=== PATIENT | female | born 1955 | race Caucasian/White ===

== ENCOUNTER 2016-10-13 05:52 | Inpatient (IN) | payer MEDICAID, OTHER ==
[2016-10-13] MEDS ORDERED: NITROGLYCERIN SL TABS 0.4 MG TAB SUBLINGUAL STA ×3 (06:01)
[2016-10-13] MEDS ORDERED: ASPIRIN 81 MG CHEW PO STA (06:01)
--- NOTE | 2016-10-13 06:11 | ED ---
General Adult HPI - General Source: patient, RN notes reviewed Mode of arrival: wheelchair Limitations: no limitations <Reinier Araujo - Last Filed: 10/13/16 06:04> <Andrade Torres - Last Filed: 10/13/16 08:35> - General Chief complaint: Chest Pain Stated complaint: Chest Pain Time Seen by Provider: 10/13/16 05:57 - History of Present Illness Initial comments: Patient is a pleasant 89-year-old female presenting to the emergency department complaining of chest discomfort. Onset of symptoms was closed a week ago. Symptoms have been somewhat intermittent. Discomfort is more sharp. Patient has been coughing for over a week. Patient has occasional yellow sputum. Cough does make symptoms worse. Patient feels slightly short of breath. Patient did vomit one time. No diaphoresis. Patient has had similar symptoms previously without cardiac evaluation. (Reinier Araujo) - Related Data Allergies Allergy/AdvReac Type Severity Reaction Status Date / Time levofloxacin [From Levaquin] Allergy Anaphylaxis Verified 10/13/16 06:03 codeine AdvReac Nausea & Verified 10/13/16 06:03 Vomiting erythromycin base AdvReac Nausea & Verified 10/13/16 06:03 Vomiting Review of Systems ROS Other: All systems not noted in ROS Statement are negative. Constitutional: Denies: fever Eyes: Denies: eye pain ENT: Denies: ear pain Respiratory: Reports: cough Cardiovascular: Reports: chest pain Endocrine: Reports: fatigue Gastrointestinal: Reports: vomiting. Denies: abdominal pain Genitourinary: Denies: dysuria Musculoskeletal: Denies: back pain Skin: Denies: rash <Reinier Araujo - Last Filed: 10/13/16 06:04> ROS Other: All systems not noted in ROS Statement are negative. <Andrade Torres - Last Filed: 10/13/16 08:35> ROS Statement: Those systems with pertinent positive or pertinent negative responses have been documented in the HPI. Past Medical History Past Medical History: Hypertension History of Any Multi-Drug Resistant Organisms: None Reported Past Surgical History: Cholecystectomy, Orthopedic Surgery, Tubal Ligation Additional Past Surgical History / Comment(s): right breast lumpectomy Past Psychological History: No Psychological Hx Reported Smoking Status: Never smoker Past Alcohol Use History: None Reported Past Drug Use History: None Reported <Reinier Araujo - Last Filed: 10/13/16 06:04> General Exam Limitations: no limitations General appearance: alert, in no apparent distress Head exam: Present: atraumatic Eye exam: Present: normal appearance Neck exam: Present: normal inspection Respiratory exam: Present: normal lung sounds bilaterally Cardiovascular Exam: Present: regular rate, normal rhythm Expanded Peripheral pulses: 2+: Radial (R), Radial (L), Dorsalis Pedis (R), Dorsalis Pedis (L) GI/Abdominal exam: Present: soft. Absent: tenderness Extremities exam: Present: normal inspection. Absent: pedal edema, calf tenderness Neurological exam: Present: alert Psychiatric exam: Present: normal affect, normal mood Skin exam: Absent: rash <Reinier Araujo - Last Filed: 10/13/16 06:04> EKG Findings - EKG Comments: EKG Findings:: Normal sinus rhythm 68. Normal intervals. Normal axis. Normal QRS. Normal ST-T. <Reinier Araujo - Last Filed: 10/13/16 06:04> Medical Decision Making <Reinier Araujo - Last Filed: 10/13/16 06:04> - Lab Data Result diagrams: 10/13/16 06:03 10/13/16 06:03 <Andrade Torres - Last Filed: 10/13/16 08:35> - Medical Decision Making I received this patient has a sign out. She has remained symptom-free here in the emergency department. I did discuss the case with her physician Dr. Cummings , and the patient will be admitted to have serial cardiac enzymes and telemetry monitoring. He also requested cardiology consultation. (Andrade Torres) - Lab Data Lab Results 10/13/16 10/13/16 10/13/16 Range/Units 06:03 06:03 06:03 WBC 8.3 (3.8-10.6) k/uL RBC 4.54 (3.80-5.40) m/uL Hgb 14.3 (11.4-16.0) gm/dL Hct 43.5 (34.0-46.0) % MCV 95.8 (80.0-100.0) fL MCH 31.6 (25.0-35.0) pg MCHC 33.0 (31.0-37.0) g/dL RDW 13.0 (11.5-15.5) % Plt Count 307 (150-450) k/uL Neutrophils % 58 % Lymphocytes % 33 % Monocytes % 3 % Eosinophils % 3 % Basophils % 1 % Neutrophils # 4.8 (1.3-7.7) k/uL Lymphocytes # 2.7 (1.0-4.8) k/uL Monocytes # 0.3 (0-1.0) k/uL Eosinophils # 0.3 (0-0.7) k/uL Basophils # 0.1 (0-0.2) k/uL PT (9.0-12.0) sec INR (<1.1) APTT (22.0-30.0) sec D-Dimer (<0.60) mg/L FEU Sodium 144 (137-145) mmol/L Potassium 3.9 (3.5-5.1) mmol/L Chloride 105 (98-107) mmol/L Carbon Dioxide 29 (22-30) mmol/L Anion Gap 10 mmol/L BUN 18 H (7-17) mg/dL Creatinine 0.60 (0.52-1.04) mg/dL Est GFR (MDRD) Af Amer >60 (>60 ml/min/1.73 sqM) Est GFR (MDRD) Non-Af >60 (>60 ml/min/1.73 sqM) Glucose 103 H (74-99) mg/dL Calcium 9.8 (8.4-10.2) mg/dL Magnesium 2.2 (1.6-2.3) mg/dL Total Bilirubin 0.5 (0.2-1.3) mg/dL AST 18 (14-36) U/L ALT 40 (9-52) U/L Alkaline Phosphatase 68 (38-126) U/L Total Creatine Kinase 43 (30-135) U/L CK-MB (CK-2) 1.0 (0.0-2.4) ng/mL CK-MB (CK-2) Rel Index 2.3 Troponin I <0.012 (0.000-0.034) ng/mL Total Protein 6.7 (6.3-8.2) g/dL Albumin 4.1 (3.5-5.0) g/dL 10/13/16 Range/Units 06:03 WBC (3.8-10.6) k/uL RBC (3.80-5.40) m/uL Hgb (11.4-16.0) gm/dL Hct (34.0-46.0) % MCV (80.0-100.0) fL MCH (25.0-35.0) pg MCHC (31.0-37.0) g/dL RDW (11.5-15.5) % Plt Count (150-450) k/uL Neutrophils % % Lymphocytes % % Monocytes % % Eosinophils % % Basophils % % Neutrophils # (1.3-7.7) k/uL Lymphocytes # (1.0-4.8) k/uL Monocytes # (0-1.0) k/uL Eosinophils # (0-0.7) k/uL Basophils # (0-0.2) k/uL PT 10.2 (9.0-12.0) sec INR 1.0 (<1.1) APTT 23.9 (22.0-30.0) sec D-Dimer 0.18 (<0.60) mg/L FEU Sodium (137-145) mmol/L Potassium (3.5-5.1) mmol/L Chloride (98-107) mmol/L Carbon Dioxide (22-30) mmol/L Anion Gap mmol/L BUN (7-17) mg/dL Creatinine (0.52-1.04) mg/dL Est GFR (MDRD) Af Amer (>60 ml/min/1.73 sqM) Est GFR (MDRD) Non-Af (>60 ml/min/1.73 sqM) Glucose (74-99) mg/dL Calcium (8.4-10.2) mg/dL Magnesium (1.6-2.3) mg/dL Total Bilirubin (0.2-1.3) mg/dL AST (14-36) U/L ALT (9-52) U/L Alkaline Phosphatase (38-126) U/L Total Creatine Kinase (30-135) U/L CK-MB (CK-2) (0.0-2.4) ng/mL CK-MB (CK-2) Rel Index Troponin I (0.000-0.034) ng/mL Total Protein (6.3-8.2) g/dL Albumin (3.5-5.0) g/dL Disposition <Reinier Araujo - Last Filed: 10/13/16 06:04> <Andrade Torres - Last Filed: 10/13/16 08:35> Clinical Impression: Chest pain Disposition: ADMITTED IP TO THIS HOSP Condition: Good Instructions: Chest Pain (ED)
[2016-10-13 06:20] LABS: Basophils # (A) 0.1 k/uL (0-0.2); Basophils % (A) 1 %; CH 32.6; CHCM 34.2; Eosinophils # (A) 0.3 k/uL (0-0.7); Eosinophils % (A) 3 %; HCT 43.5 % (34.0-46.0); HDW 2.91; HGB 14.3 gm/dL (11.4-16.0); Luc # (Auto) 0.18; Luc % (Auto) 2; Lymphocytes # (A) 2.7 k/uL (1.0-4.8); Lymphocytes % (A) 33 %; MCH 31.6 pg (25.0-35.0); MCV 95.8 fL (80.0-100.0); Mean Platelet Volume 7.7; Monocytes # (A) 0.3 k/uL (0-1.0); Monocytes % (A) 3 %; Neutrophils # (A) 4.8 k/uL (1.3-7.7); Neutrophils % (A) 58 %; RBC 4.54 m/uL (3.80-5.40); WBC 8.3 k/uL (3.8-10.6); WBC (Perox) 8.47
[2016-10-13] MEDS ORDERED: ACETAMINOPHEN TAB 500 MG TAB PO STA (06:30)
[2016-10-13 06:32] LABS: ALT 40 U/L (9-52); AST 18 U/L (14-36); Alkaline Phosphatase 68 U/L (38-126); Anion Gap 10 mmol/L; Blood Urea Nitrogen 18 mg/dL (7-17); Calcium 9.8 mg/dL (8.4-10.2); Carbon Dioxide 29 mmol/L (22-30); Chloride 105 mmol/L (98-107); Glucose 103 mg/dL (74-99); Magnesium 2.2 mg/dL (1.6-2.3); Non-African American GFR(MDRD) >60 (>60 ml/min/1.73 sqM); Potassium 3.9 mmol/L (3.5-5.1); Sodium 144 mmol/L (137-145); Total Bilirubin 0.5 mg/dL (0.2-1.3); Total Protein 6.7 g/dL (6.3-8.2)
[2016-10-13 06:33] LABS: Partial Thromboplastin Time 23.9 sec (22.0-30.0); Prothrombin Time 10.2 sec (9.0-12.0)
--- NOTE | 2016-10-13 06:37 | XR ---
EXAMINATION TYPE: XR chest 2V DATE OF EXAM: 10/13/2016 6:29 AM COMPARISON: 12/14/2012 HISTORY: Chest pain TECHNIQUE: Frontal and lateral views of the chest are obtained. FINDINGS: Heart is enlarged. There is no heart failure. There are no hilar masses. Lungs are clear. There is no pleural effusion. Bony thorax is intact. IMPRESSION: Mild cardiomegaly is new compared to old exam. No heart failure or pulmonary infiltrate.
[2016-10-13 06:49] LABS: Creatine Kinase 43 U/L (30-135)
[2016-10-13 07:03] LABS: Troponin I <0.012 ng/mL (0.000-0.034)
[2016-10-13] MEDS ORDERED: NITROGLYCERIN OINT 1 INCH/GM PACKET TOPICAL STA (07:07)
[2016-10-13] MEDS ORDERED: NITROGLYCERIN SL TABS 0.4 MG TAB SUBLINGUAL PRN (08:35)
[2016-10-13 13:10] LABS: Creatine Kinase 31 U/L (30-135)
[2016-10-13] MEDS ORDERED: ACETAMINOPHEN TAB 325 MG TAB PO PRN (13:11)
[2016-10-13 13:23] LABS: Creatine Kinase MB 0.7 ng/mL (0.0-2.4); Troponin I <0.012 ng/mL (0.000-0.034)
--- NOTE | 2016-10-13 14:01 | P.CRDCN ---
History of Present Illness Consult date: 10/13/16 Chief complaint: Chest pain History of present illness: This is a pleasant 61-year-old female patient with a past medical history significant for hypertension presented to the emergency room complaining of chest discomfort. She was in her usual state of health until earlier today when she woke up from sleep was going to get her breakfast and started experiencing chest discomfort as sharp kind of discomfort without any radiation to the arm or neck or shoulders and without any associated symptoms. It lasted about 10 minutes then it was resolved. Subsequently she had another episode of less in duration and intensity. The cardiac workup of enzymes and EKG came in to be unremarkable. The patient only risk factor for CAD is hypertension. She does not smoke or drink alcohol. She has no family history of coronary artery disease. I recommended proceeding with a stress test to rule out any severe underlying CAD Past Medical History Past Medical History: GERD/Reflux, Hypertension History of Any Multi-Drug Resistant Organisms: None Reported Past Surgical History: Cholecystectomy, Orthopedic Surgery, Tubal Ligation Additional Past Surgical History / Comment(s): right breast lumpectomy (benign) , R fibula fx with surgery-plate/screws. Past Anesthesia/Blood Transfusion Reactions: Postoperative Nausea & Vomiting ( PONV) Past Psychological History: No Psychological Hx Reported Additional Psychological History / Comment(s): Pt resides with her spouse and adult daughter. She is independent. Smoking Status: Never smoker Past Alcohol Use History: None Reported Past Drug Use History: None Reported - Past Family History Father Family Medical History: Diabetes Mellitus Additional Family Medical History / Comment(s): Father from fall at work which caused cervical fracture. Mother Family Medical History: Dementia, Hypertension Additional Family Medical History / Comment(s): Alzheimer's, macular degeneration-blindness. She at the age of 86yrs. Medications and Allergies Home Medications Medication Instructions Recorded Confirmed Type Doxycycline [Vibramycin] 100 mg PO Q12HR 10/13/16 10/13/16 History Losartan [Cozaar] 50 mg PO DAILY 10/13/16 10/13/16 History Pantoprazole Sodium 40 mg PO DAILY 10/13/16 10/13/16 History Allergies Allergy/AdvReac Type Severity Reaction Status Date / Time levofloxacin [From Levaquin] Allergy Anaphylaxis Verified 10/13/16 06:03 codeine AdvReac Nausea & Verified 10/13/16 06:03 Vomiting erythromycin base AdvReac Nausea & Verified 10/13/16 06:03 Vomiting Physical Exam Vitals: Vital Signs Temp Pulse Pulse Resp BP BP Pulse Ox 10/13/16 12:00 97.9 F 69 18 136/83 96 10/13/16 11:48 97.3 F L 66 18 153/79 99 10/13/16 10:10 66 16 135/65 98 10/13/16 09:40 70 16 143/81 98 10/13/16 09:10 60 16 154/83 98 10/13/16 08:40 64 18 145/81 97 Intake and Output 10/12/16 10/13/16 10/13/16 22:59 06:59 14:59 Other: Voiding Method Toilet Weight 96.7 kg Patient Weight 10/14/16 06:59 Weight 96.7 kg - Constitutional General appearance: no acute distress - Respiratory Respiratory: bilateral: CTA - Cardiovascular Rhythm: regular Heart sounds: normal: S1, S2 Results 10/13/16 06:03 10/13/16 06:03 Cardiac Enzymes 10/13/16 Range/Units 12:09 CK-MB (CK-2) 0.7 (0.0-2.4) ng/mL Troponin I <0.012 (0.000-0.034) ng/mL Current Medications Generic Name Dose Route Start Last Admin Trade Name Freq PRN Reason Stop Dose Admin Acetaminophen 650 mg 10/13/16 13:11 10/13/16 13:40 Tylenol Tab PO 650 mg Q6HR PRN Administration Fever and/ or Pain Aspirin 325 mg 10/14/16 09:00 Aspirin PO DAILY [facility] Doxycycline Monohydrate 100 mg 10/13/16 13:15 Vibramycin PO Q12HR [facility] Sodium Chloride 1,000 mls @ 100 mls/hr 10/13/16 08:45 Saline 0.9% IV .Q10H [facility] Losartan Potassium 50 mg 10/13/16 13:15 Cozaar PO DAILY [facility] Nitroglycerin 0.4 mg 10/13/16 08:35 Nitrostat SUBLINGUAL Q5M PRN Chest Pain Pantoprazole Sodium 40 mg 10/13/16 13:15 Protonix PO AC-BRKFST TIERA Intake and Output 10/12/16 10/13/16 10/13/16 22:59 06:59 14:59 Other: Voiding Method Toilet Weight 96.7 kg Patient Weight 10/14/16 06:59 Weight 96.7 kg Assessment and Plan Plan: Assessment #1 atypical chest discomfort #2 systemic hypertension Plan Proceeding with a stress test tomorrow
[2016-10-13] MEDS: PANTOPRAZOLE 40 MG TABLET PO SCH (14:35)
[2016-10-13] MEDS: DOXYCYCLINE 50 MG CAP PO SCH ×2 (14:35→20:18)
[2016-10-13] MEDS: LOSARTAN 50 MG TAB PO SCH (14:35)
[2016-10-13 19:03] LABS: Creatine Kinase 31 U/L (30-135)
[2016-10-13 19:17] LABS: Creatine Kinase MB 0.8 ng/mL (0.0-2.4); Troponin I <0.012 ng/mL (0.000-0.034)
[2016-10-13] MEDS: SODIUM CHLORIDE 0.9% 1,000 ML IV SCH ×2 (19:28→19:29)
[2016-10-14 01:44] LABS: Cholesterol 195 mg/dL (<200); HDL Cholesterol 44 mg/dL (40-60); Triglycerides 129 mg/dL (<150)
[2016-10-14] MEDS: SODIUM CHLORIDE 0.9% 1,000 ML IV SCH ×2 (06:19→22:17)
--- NOTE | 2016-10-14 08:40 | P.HPIM ---
History of Present Illness H&P Date: 10/14/16 Chief Complaint: chest pain This is a history of physical 61-year-old white female who has been having chest pressure for the last several days. 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 She describes chest pressure and was becoming more frequent some radiation to the shoulder is noted. No nausea or diaphoresis however stated. Activity was not necessary provocative but she was becoming more concerned. Because of her symptoms and her comorbidities including her obesity, she was appropriately admitted. Commodity Analyst consulted and she is going to have nuclear medicine stress test later today. Review of Systems Constitutional: Denies chills, Denies fever Eyes: denies blurred vision, denies pain Cardiovascular: Reports chest pain Respiratory: Denies cough Gastrointestinal: Denies abdominal pain, Denies diarrhea, Denies nausea, Denies vomiting Genitourinary: Denies dysuria, Denies hematuria Musculoskeletal: Denies myalgias Integumentary: Denies pruritus, Denies rash Neurological: Denies numbness, Denies weakness Psychiatric: Denies anxiety, Denies depression Past Medical History Past Medical History: GERD/Reflux, Hypertension History of Any Multi-Drug Resistant Organisms: None Reported Past Surgical History: Cholecystectomy, Orthopedic Surgery, Tubal Ligation Additional Past Surgical History / Comment(s): right breast lumpectomy (benign) , R fibula fx with surgery-plate/screws. Past Anesthesia/Blood Transfusion Reactions: Postoperative Nausea & Vomiting ( PONV) Past Psychological History: No Psychological Hx Reported Additional Psychological History / Comment(s): Pt resides with her spouse and adult daughter. She is independent. Smoking Status: Never smoker Past Alcohol Use History: None Reported Past Drug Use History: None Reported - Past Family History Father Family Medical History: Diabetes Mellitus Additional Family Medical History / Comment(s): Father from fall at work which caused cervical fracture. Mother Family Medical History: Dementia, Hypertension Additional Family Medical History / Comment(s): Alzheimer's, macular degeneration-blindness. She at the age of 86yrs. Medications and Allergies Home Medications Medication Instructions Recorded Confirmed Type Doxycycline [Vibramycin] 100 mg PO Q12HR 10/13/16 10/13/16 History Losartan [Cozaar] 50 mg PO DAILY 01/12/17 01/12/17 History Pantoprazole Sodium 40 mg PO DAILY 10/13/16 10/13/16 History Allergies Allergy/AdvReac Type Severity Reaction Status Date / Time levofloxacin [From [facility]] Allergy Anaphylaxis Verified 10/13/16 06:03 codeine AdvReac Nausea & Verified 10/13/16 06:03 Vomiting erythromycin base AdvReac Nausea & Verified 10/13/16 06:03 Vomiting Physical Exam Vitals: Vital Signs Temp Pulse Pulse Pulse Resp BP BP 10/14/16 08:00 98.3 F 72 16 10/14/16 04:00 98.4 F 62 16 10/14/16 00:00 16 10/13/16 23:50 98.0 F 63 16 10/13/16 20:00 16 10/13/16 19:30 98.1 F 70 16 10/13/16 16:00 69 73 16 10/13/16 15:38 97.5 F L 73 16 10/13/16 12:00 97.9 F 69 18 136/83 10/13/16 11:48 97.3 F L 66 18 153/79 10/13/16 10:10 66 16 135/65 10/13/16 09:40 70 16 143/81 10/13/16 09:10 60 16 154/83 10/13/16 08:40 64 18 145/81 BP Pulse Ox 10/14/16 08:00 128/65 94 L 10/14/16 04:00 116/59 95 10/14/16 00:00 10/13/16 23:50 117/55 94 L 10/13/16 20:00 10/13/16 19:30 139/72 96 10/13/16 16:00 10/13/16 15:38 120/65 94 L 10/13/16 12:00 96 10/13/16 11:48 99 10/13/16 10:10 98 10/13/16 09:40 98 10/13/16 09:10 98 10/13/16 08:40 97 Intake and Output 10/13/16 10/14/16 10/14/16 22:59 06:59 14:59 Intake Total 222 Balance 222 Intake: Oral 222 Other: Voiding Method Toilet Toilet # Voids 1 1 - Constitutional General appearance: obese - EENT Eyes: EOMI - Neck Neck: no lymphadenopathy - Respiratory Respiratory: bilateral: CTA - Cardiovascular Rhythm: regular Heart sounds: normal: S1, S2 - Gastrointestinal General gastrointestinal: soft, no tenderness - Integumentary Integumentary: no cellulitis - Neurologic Neurologic: CNII-XII intact Results CBC & Chem 7: 10/13/16 06:03 10/13/16 06:03 Thrombosis Risk Factor Assmnt - Choose All That Apply Any of the Below Risk Factors Present?: Yes Each Factor Represents 1 point: Age 41-60 years, Obesity (BMI >25) Other Risk Factors: No Other congenital or acquired thrombophilia - If yes, enter type in comment: No Thrombosis Risk Factor Assessment Total Risk Factor Score: 2 Thrombosis Risk Factor Assessment Level: Low Risk Assessment and Plan Plan: Myocardial infraction has been ruled out. Waiting appropriate stress testing. Hopefully discharge later today. Reconcile medications as necessary. She's a full code. Time with Patient: Less than 30
--- NOTE | 2016-10-14 09:14 | P.PN ---
Progress Note - Text This is a pleasant 61-year-old female patient with a past medical history significant for hypertension presented to the emergency room complaining of chest discomfort. She was in her usual state of health until earlier today when she woke up from sleep was going to get her breakfast and started experiencing chest discomfort as sharp kind of discomfort without any radiation to the arm or neck or shoulders and without any associated symptoms. It lasted about 10 minutes then it was resolved. Subsequently she had another episode of less in duration and intensity. The cardiac workup of enzymes and EKG came in to be unremarkable. The patient only risk factor for CAD is hypertension. She does not smoke or drink alcohol. She has no family history of coronary artery disease. I recommended proceeding with a stress test to rule out any severe underlying CAD
[2016-10-14] MEDS: DOXYCYCLINE 50 MG CAP PO SCH ×2 (11:55→20:32)
[2016-10-14] MEDS: ASPIRIN 325 MG TAB PO SCH (11:56)
[2016-10-14] MEDS: PANTOPRAZOLE 40 MG TABLET PO SCH (11:56)
[2016-10-14] MEDS: LOSARTAN 50 MG TAB PO SCH (11:56)
--- NOTE | 2016-10-14 12:22 | ECHOS ---
DATE OF SERVICE: 10/14/2016 AGE: 61Y SEX: F HT: 61 WT: 213 lbs. Protocol Ben: X Others: Stress Echo Stage: II Dur. of Exercise: 6 minutes *Heart Rate Blood Pressure *Rest: 77 Rest: 120/69 * *Max. Achieved: 143 Maximum BP: 164/86 85% PMHR: 137 100% PMHR: 161 *METS: 6.1 INDICATIONS: Chest pain. MEDICATIONS: Losartan. CLINICAL INFORMATION: Hypertension, chest pain, shortness of breath. Family history of coronary artery disease. Patient is a nonsmoker. Resting ECG shows sinus rhythm, rate of 77 beats per minute, [place] interval 0.16, QRS 0.08, normal ST-T waves. Utilizing a standard Ben protocol, a symptom-limited treadmill test was performed. Patient exercised for total of 6 minutes, attained a peak heart rate 143 beats per minute which is approximately 89% predicted maximum heart rate with mild chest pain without any ST segment deviations indicative of ischemia at peak exertion. No cardiac ( ). Baseline images show normal thickening and contractility. Postexercise images show improve contractility except for a questionable mild hypokinesis of the anteroapical segment appears to be slightly lagging compared to baseline and recovery. Clinical correlation is suggested. IMPRESSION: 1. Mild hypokinesis of the anteroapical segment compared to recovery and the baseline. Clinical correlation is suggested, possible underlying ischemic heart disease. 2. Patient reported to have mild chest pressure at peak exertion without any ST segment deviations indicative of ischemia.
[2016-10-14] MEDS ORDERED: ALPRAZolam 0.5 MG TAB PO PRN (15:45)
[2016-10-14] MEDS ORDERED: NITROGLYCERIN SL TABS 0.4 MG TAB SUBLINGUAL PRN (15:45)
[2016-10-14] MEDS ORDERED: ATORVASTATIN 80 MG TAB PO STA (15:45)
[2016-10-14] MEDS ORDERED: SODIUM CHLORIDE 0.9% 1,000 ML in EMPTY BAG 1 BAG IV ONE (15:45)
[2016-10-14] MEDS ORDERED: ALPRAZolam 0.25 MG TAB PO PRN (15:45)
[2016-10-14] MEDS ORDERED: ASPIRIN 325 MG TAB PO STA (15:45)
[2016-10-14 17:01] VITALS: RESP 18
[2016-10-14] MEDS ORDERED: MORPHINE SULFATE 2 MG/ML SYRINGE IVP PRN (22:00)
[2016-10-14] MEDS ORDERED: ONDANSETRON 4 MG/2 ML VIAL IVP PRN (22:01)
[2016-10-15] MEDS: SODIUM CHLORIDE 0.9% 1,000 ML IV SCH (05:32)
[2016-10-15] MEDS: DOXYCYCLINE 50 MG CAP PO SCH (06:34)
[2016-10-15] MEDS: PANTOPRAZOLE 40 MG TABLET PO SCH (06:34)
[2016-10-15] MEDS: LOSARTAN 50 MG TAB PO SCH (06:34)
[2016-10-15] MEDS: ASPIRIN 325 MG TAB PO SCH (06:35)
--- NOTE | 2016-10-15 09:02 | P.PN ---
Progress Note - Text This is a pleasant 61-year-old female patient with a past medical history significant for hypertension presented to the emergency room complaining of chest discomfort. She was in her usual state of health until earlier today when she woke up from sleep was going to get her breakfast and started experiencing chest discomfort as sharp kind of discomfort without any radiation to the arm or neck or shoulders and without any associated symptoms. It lasted about 10 minutes then it was resolved. Subsequently she had another episode of less in duration and intensity. The cardiac workup of enzymes and EKG came in to be unremarkable. The patient only risk factor for CAD is hypertension. She does not smoke or drink alcohol. She has no family history of coronary artery disease. The patient underwent a stress test which showed ischemia. I would consider proceeding with heart catheterization to rule out any severe underlying CAD.
[2016-10-15] MEDS ORDERED: LIDOCAINE 2% INJ 20 MG/ML (20 ML MDV) ONE (12:15)
[2016-10-15] MEDS ORDERED: SODIUM CHLORIDE 0.9% (PF) 10 ML VIAL ONE (12:15)
[2016-10-15] MEDS ORDERED: VERAPAMIL 2.5 MG/ML 2 ML AMP ONE (12:15)
[2016-10-15] MEDS ORDERED: IV FLUID CONTINUATION 175 ML IV ONE (12:20)
[2016-10-15] MEDS ORDERED: diphenhydrAMINE 50 MG/ML 1 ML VIAL ONE (12:29)
[2016-10-15] MEDS ORDERED: MIDAZOLAM 2 MG/2 ML VIAL ONE ×2 (12:29→12:50)
[2016-10-15] MEDS ORDERED: diphenhydrAMINE 50 MG/ML 1 ML VIAL IVP ONE (12:35)
[2016-10-15] MEDS: MIDAZOLAM 2 MG/2 ML VIAL IV ONE ×2 (12:37→12:43)
[2016-10-15] MEDS ORDERED: LIDOCAINE 2% INJ 20 MG/ML SQ ONE (12:44)
[2016-10-15 13:00] VITALS: TEMP 98.5
[2016-10-15] MEDS ORDERED: MIDAZOLAM 2 MG/2 ML VIAL IV ONE (13:00)
[2016-10-15] MEDS ORDERED: RX INFO: IV CONTRAST WAS GIVEN 1 EACH MISC MISCELLANE PRN (13:05)
[2016-10-15] MEDS ORDERED: IOHEXOL 350 MG/ML 100 ML BOTTLE INJ ONE (13:08)
[2016-10-15] MEDS ORDERED: SODIUM CHLORIDE 0.9% 1,000 ML IV ONE (13:08)
[2016-10-15] MEDS ORDERED: SODIUM CHLORIDE 0.9% 1,000 ML IV SCH (13:15)
[2016-10-15 17:09] VITALS: BP 107/53; PULSE 81
--- NOTE | 2016-10-15 17:54 | CC ---
DATE OF SERVICE: October 15, 2016 PERFORMING PHYSICIAN: John Lainez M.D., metabolic specialist. PROCEDURE PERFORMED: 1. Selective right and left coronary angiogram. 2. Left heart catheterization. 3. Left ventriculography. INDICATION: This is a pleasant 61-year-old female patient with hypertension and dyslipidemia presented to the hospital with chest discomfort and underwent a stress test which came in to be abnormal with evidence of ischemia. Approach: Right common femoral artery. COMPLICATIONS: None. Level of sedation: Moderate. PROCEDURE DESCRIPTION: After obtaining informed consent, the patient was brought to the cardiac biological lab technician. The right common femoral artery was cannulated using micropuncture technique culture were passed easily. Then I placed a 6 Malaysian sheath in the right common femoral artery. Then I did selective right and left coronary angiogram using JR4 and JL4 catheters. After that, I did left heart catheterization and LV gram using a 6 Malaysian pigtail catheter. The procedure was completed without any complication. SELECTIVE CORONARY ANGIOGRAM: 1. The right coronary artery, the right coronary artery is a large-caliber vessel and it is a dominant vessel. It is angiographically normal. 2. The left main has plaque by the ostium/proximal portion, seems to be in the range of 20% to 30%. It bifurcates into the left circumflex and left anterior descending artery. 3. Left circumflex is a large-caliber vessel and it is a nondominant vessel. The proximal left circumflex appeared to be angiographically normal and gives rises into the first OM branch, which is tortuous, but normal. The mid left circumflex is normal and gives rises into multiple small obtuse marginal branches and the circ continues after that as a small-caliber vessel in the AV groove. 4. The LAD: The proximal LAD is angiographically normal. The mid LAD is normal and gives rises into the first diagonal branch, which seems to be angiographically normal. The LAD distally becomes small caliber vessel, but angiographically normal. HEMODYNAMICS: The left ventricular end-diastolic pressure was 16 mmHg and no gradient was identified across the aortic valve. Left central vessel was performed in the [place] PAZ projection and using a power injection. The left ventricular systolic function is normal with EF about 50%. CONCLUSION: 1. Mild coronary artery disease involving the ostial left main coronary artery. 2. Preserved left ventricular systolic function. POSTPROCEDURE MANAGEMENT: 1. Maximize medical treatment and add statin to the current medical treatment. 2. Continue aspirin as well. 3. Follow up with the patient.
--- NOTE | 2016-10-15 18:00 | LTR ---
October 15, 2016 RE: Che Patel Dear Dr. Cummings: Mrs. Che Patel underwent a heart catheterization and that showed only mild nonobstructive coronary artery disease involving the ostial left main coronary artery. I add statin to the current medical treatment with aspirin and losartan. I want to thank you for allowing me to participate or in her care. Please do not hesitate to call if you have any questions or concerns. Sincerely, MARIAA ROD MD
--- NOTE | 2016-10-15 18:20 | DS ---
DATE OF ADMISSION: 10/15/2016 DATE OF DISCHARGE: A 61-year-old who came in with chest pain questionably positive stress test. Because of which patient underwent cardiac catheterization, which did not show significant coronary occlusion. Her chest pain is probably due to anxiety episode and depression. Patient is already on Protonix. Patient is complaining of sinus headache like symptoms. Doxycycline does not appear to be effective, because of which I am starting her on Z-Gomez. Patient was seen and examined on the day of discharge. Vitals are stable. PHYSICAL EXAMINATION: GENERAL: The patient is alert and oriented x3, not in any acute distress. Well developed, well nourished. HEENT: Pupils are round and equally reacting to light. EOMI. No scleral icterus. No conjunctival pallor. Normocephalic, atraumatic. No pharyngeal erythema. No thyromegaly. CARDIOVASCULAR: S1 and S2 present. No murmurs, rubs, or gallops. PULMONARY: Chest is clear to auscultation, no wheezing or crackles. ABDOMEN: Soft, nontender, nondistended, normoactive bowel sounds. No palpable organomegaly. MUSCULOSKELETAL: No joint swelling or deformity. EXTREMITIES: No cyanosis, clubbing, or pedal edema. NEUROLOGICAL: Gross neurological examination did not reveal any focal deficits. SKIN: No rashes. FINAL DIAGNOSES: 1. Chest pain rule out acute coronary artery syndrome. Patient underwent cardiac catheterization which did not show any significant occlusion of the coronary vasculature. 2. Possible bronchitis. 3. Chest pain, probably related to episodes of anxiety. Patient will follow with Dr. Cummings as an outpatient. DISCHARGE DIET: Cardiac. Patient does have a history of high blood pressure. Follow with Dr. Jonh Cummings in 3 to 7 days. Activity as tolerated. DISCHARGE MEDICATIONS: 1. Z-Gomez. 2. Losartan. 3. Protonix.
[2016-10-15] MEDS ORDERED: ATORVASTATIN 80 MG TAB PO SCH (21:00)
== END 2016-10-15 19:15 | disposition home or self-care (01) | DRG 287 ==
LOC: EC 05:52 → OBSVTOIN 08:36 → 3OBS 08:36 → INTOOBSV 10-15 09:18 → OBSVTOIN 10-15 09:18 → UNDODISIN 10-15 19:15
PROVIDERS: ADMIT Family Medicine; ATTEND Family Medicine
PROC: B2111ZZ Fluoroscopy of Multiple Coronary Arteries using Low Osmolar Contrast (ICD-10-PCS; 2016-10-15)
PROC: B2151ZZ Fluoroscopy of Left Heart using Low Osmolar Contrast (ICD-10-PCS; 2016-10-15)
PROC: 4A023N7 Measurement of Cardiac Sampling and Pressure, Left Heart, Percutaneous Approach (ICD-10-PCS; principal; 2016-10-15 07:30)
DX: R07.9 Chest pain, unspecified (principal); Z68.41 Body mass index [BMI] 40.0-44.9, adult; I10 Essential (primary) hypertension; E66.9 Obesity, unspecified; F32.9 Major depressive disorder, single episode, unspecified; E78.5 Hyperlipidemia, unspecified; F41.9 Anxiety disorder, unspecified; I25.10 Atherosclerotic heart disease of native coronary artery without angina pectoris; K21.9 Gastro-esophageal reflux disease without esophagitis; J40 Bronchitis, not specified as acute or chronic; Z79.899 Other long term (current) drug therapy; Z88.1 Allergy status to other antibiotic agents; Z88.5 Allergy status to narcotic agent; Z82.49 Family history of ischemic heart disease and other diseases of the circulatory system
CPT/HCPCS: 36415; 71020; 80053; 80061; 82550; 82553; 83735; 84484; 85025; 85379; 85610; 85730; 93005; 93017; 93350; 93458; 99285

== ENCOUNTER → 2016-11-16 | Outpatient (CLI) | payer MEDICAID ==
--- NOTE | 2016-11-16 09:44 | ECHOF ---
Referral Reason:HTN MEASUREMENTS -------- HEIGHT: 127.0 cm WEIGHT: 96.2 kg BP: IVSd: 1.2 cm (0.6 - 1.1) LVIDd: 4.3 cm (3.9 - 5.3) LVPWd: 1.1 cm (0.6 - 1.1) IVSs: 1.7 cm LVIDs: 3.6 cm LVPWs: 1.4 cm LA Diam: 3.5 cm (2.7 - 3.8) LAESV Index (A-L): 27.33 ml/m Ao Diam: 3.6 cm (2.0 - 3.7) AV Cusp: 1.6 cm (1.5 - 2.6) LA Diam: 3.4 cm (2.7 - 3.8) MV EXCURSION: 20.174 mm (> 18.000) MV EF SLOPE: 80 mm/s (70 - 150) EPSS: 0.8 cm MV E Jesus: 0.71 m/s MV DecT: 224 ms MV A Jesus: 0.91 m/s MV E/A Ratio: 0.78 RAP: 5.00 mmHg RVSP: 26.20 mmHg FINDINGS -------- Sinus rhythm. This was a technically good study. There is mild concentric left ventricular hypertrophy. Overall left ventricular systolic function is normal with, an EF between 55 - 60 %. Possible Inferior Basal Hypokinesis. The right ventricle is normal in size. Normal LA size by volume 22+/-6 ml/m2. The right atrial size is normal. There is mild aortic valve sclerosis. There is no evidence of aortic regurgitation. Mild mitral annular calcification present. Mild mitral regurgitation is present. Mild tricuspid regurgitation present. There is no evidence of pulmonary hypertension. The right ventricular systolic pressure, as measured by Doppler, is 26.20mmHg. Trace/mild (physiologic) pulmonic regurgitation. The aortic root size is normal. There is no pericardial effusion. CONCLUSIONS -------- 1. There is mild concentric left ventricular hypertrophy. 2. The right ventricular systolic pressure, as measured by Doppler, is 26.20mmHg. 3. Trace/mild (physiologic) pulmonic regurgitation. 4. There is no pericardial effusion. 5. Overall left ventricular systolic function is normal with, an EF between 55 - 60 %. 6. Possible Inferior Basal Hypokinesis. 7. Normal LA size by volume 22+/-6 ml/m2. 8. There is mild aortic valve sclerosis. 9. Mild mitral annular calcification present. 10. Mild mitral regurgitation is present. 11. Mild tricuspid regurgitation present. 12. There is no evidence of pulmonary hypertension. [employer]ERIAL HANDLER: Dahiana Goldberg RDCS
== END | disposition home or self-care (01) ==
LOC: RADECHMAIN 08:17
PROVIDERS: ATTEND Internal Medicine Interventional Cardiology
DX: I34.0 Nonrheumatic mitral (valve) insufficiency (principal); I07.1 Rheumatic tricuspid insufficiency; I35.8 Other nonrheumatic aortic valve disorders; I25.10 Atherosclerotic heart disease of native coronary artery without angina pectoris; I10 Essential (primary) hypertension
CPT/HCPCS: 93306

== ENCOUNTER → 2017-06-29 | Outpatient (CLI) | payer MEDICAID ==
--- NOTE | 2017-06-30 07:57 | XR ---
EXAMINATION TYPE: XR pelvis AP view DATE OF EXAM: 06/29/2017 CLINICAL HISTORY: Fall and hip pain TECHNIQUE: A single AP view of the pelvis is obtained. COMPARISON: Left hip radiographs dated 06/21/2017 FINDINGS: There is no acute fracture/dislocation evident in the pelvis. The hip and sacroiliac join ts appear symmetric and unremarkable. The overlying soft tissue appears unremarkable. Tubal ligation clips are noted. Minimal degenerative changes of femoral acetabular joints are demonstrated as aceta bular sclerosis. IMPRESSION: There is no acute fracture or dislocation in the pelvis. Mild degenerative changes of th e bilateral femoral acetabular joints.
== END | disposition home or self-care (01) ==
LOC: RADXRMAIN 16:02
PROVIDERS: ATTEND Family Medicine
DX: R10.2 Pelvic and perineal pain (principal); M25.552 Pain in left hip
CPT/HCPCS: 72170

== ENCOUNTER → 2017-06-29 | Outpatient (CLI) | payer MEDICAID ==
--- NOTE | 2017-06-29 13:27 | XR ---
EXAMINATION TYPE: XR Hip Complete LT DATE OF EXAM: 06/29/2017 CLINICAL HISTORY: Fall and hip pain TECHNIQUE: AP and frogleg views of the left hip are obtained. COMPARISON: None. FINDINGS: There is no acute fracture/dislocation evident in the left hip. The joint space in the le ft hip appears within normal limits. The overlying soft tissue appears unremarkable. Metallic densit y at the inferior left sacroiliac joint may be external to the patient or within the true pelvis. IMPRESSION: There is no acute fracture or dislocation in the left hip.
== END | disposition home or self-care (01) ==
LOC: RADXRMAIN 10:43
PROVIDERS: ATTEND Family Medicine
DX: M25.552 Pain in left hip (principal)
CPT/HCPCS: 73502

== ENCOUNTER → 2017-07-13 | Outpatient (CLI) | payer MEDICAID ==
[2017-07-13 10:31] LABS: ALT 40 U/L (9-52); AST 15 U/L (14-36); Cholesterol 180 mg/dL (<200); HDL Cholesterol 62 mg/dL (40-60)
== END | disposition home or self-care (01) ==
LOC: LABWHC1 09:40
PROVIDERS: ATTEND Internal Medicine Interventional Cardiology
DX: E78.2 Mixed hyperlipidemia (principal)
CPT/HCPCS: 36415; 80061; 84450; 84460

== ENCOUNTER → 2017-07-17 | Outpatient (CLI) | payer MEDICAID ==
--- NOTE | 2017-07-17 12:54 | ECHOF ---
Referral Reason:I10 Hypertension I25.10 Cardiovascular Disease Uns MEASUREMENTS -------- HEIGHT: 154.9 cm WEIGHT: 102.1 kg BP: 142/76 IVSd: 1.4 cm (0.6 - 1.1) LVIDd: 3.7 cm (3.9 - 5.3) LVPWd: 1.4 cm (0.6 - 1.1) IVSs: 2.2 cm LVIDs: 2.2 cm LVPWs: 1.9 cm Ao Diam: 3.3 cm (2.0 - 3.7) AV Cusp: 1.7 cm (1.5 - 2.6) LA Diam: 3.0 cm (2.7 - 3.8) MV EXCURSION: 16.659 mm (> 18.000) MV EF SLOPE: 85 mm/s (70 - 150) EPSS: 0.7 cm MV E Jesus: 0.76 m/s MV DecT: 200 ms MV A Jesus: 0.90 m/s MV E/A Ratio: 0.84 RAP: 5.00 mmHg RVSP: 13.29 mmHg FINDINGS -------- Sinus rhythm. This was a technically good study. The left ventricular size is normal. There is moderate concentric left ventricular hypertrophy. Overall left ventricular systolic function is low-normal with, an EF between 50 - 55 %. Basal inferior LV wall motion is hypokinetic. The right ventricle is normal in size and function. The left atrium is normal in size. The right atrium is normal in size. The aortic valve is trileaflet, and appears structurally normal. No aortic stenosis or regurgitation. Mild mitral regurgitation is present. Mild tricuspid regurgitation present. The right ventricular systolic pressure, as measured by Doppler, is 13.29mmHg. Pulmonic valve appears structurally normal. The aortic root size is normal. Normal inferior vena cava with normal inspiratory collapse consistent with estimated right atrial pressure of 5 mmHg. The pericardium is normal. CONCLUSIONS -------- 1. Sinus rhythm. 2. The aortic valve is trileaflet, and appears structurally normal. No aortic stenosis or regurgitation. 3. Mild mitral regurgitation is present. 4. Mild tricuspid regurgitation present. 5. The right ventricular systolic pressure, as measured by Doppler, is 13.29mmHg. 6. Pulmonic valve appears structurally normal. 7. The aortic root size is normal. 8. Normal inferior vena cava with normal inspiratory collapse consistent with estimated right atrial pressure of 5 mmHg. 9. The pericardium is normal. 10. This was a technically good study. 11. The left ventricular size is normal. 12. There is moderate concentric left ventricular hypertrophy. 13. Overall left ventricular systolic function is low-normal with, an EF between 50 - 55 %. 14. Basal inferior LV wall motion is hypokinetic. 15. The right ventricle is normal in size and function. 16. The left atrium is normal in size. 17. The right atrium is normal in size. MACHINE TECH: Gladys Castillo RDCS
== END ==
LOC: RADECHMAIN 11:15
PROVIDERS: ATTEND Internal Medicine Interventional Cardiology
DX: I08.1 Rheumatic disorders of both mitral and tricuspid valves (principal); I25.10 Atherosclerotic heart disease of native coronary artery without angina pectoris; I10 Essential (primary) hypertension
CPT/HCPCS: 93306

== ENCOUNTER → 2018-02-22 | Outpatient (CLI) | payer MEDICAID ==
[2018-02-22 08:45] LABS: ALT 39 U/L (9-52); AST 17 U/L (14-36); Cholesterol 170 mg/dL (<200); HDL Cholesterol 59 mg/dL (40-60); LDL Cholesterol,Calculated 91 mg/dL (0-99); Triglycerides 98 mg/dL (<150)
== END | disposition home or self-care (01) ==
LOC: LABWHC1 08:00
PROVIDERS: ATTEND Internal Medicine Interventional Cardiology
DX: E78.2 Mixed hyperlipidemia (principal)
CPT/HCPCS: 36415; 80061; 84450; 84460

== ENCOUNTER → 2018-08-09 | Outpatient (CLI) | payer MEDICAID ==
--- NOTE | 2018-08-13 10:21 | MM ---
Reason for exam: screening (asymptomatic). Last mammogram was performed 10 years and 5 months ago. History: Patient had first child at age 38. Benign stereotactic core biopsy of the left breast, July 18, 2002. Benign excisional biopsy of the right breast, August 30, 2001. Stereotactic core biopsy of the right breast, February 16, 2001. Core biopsy of the left breast. Core biopsy of the right breast. Physical Findings: A clinical breast exam by your physician is recommended on an annual basis and results should be correlated with mammographic findings. MG 3D Screening Mammo W/Cad Bilateral CC and MLO view(s) were taken. Prior study comparison: March 14, 2008, bilateral digital screening mammogram. February 16, 2006, bilateral screening mammogram w/CAD. There are scattered fibroglandular densities. Previous mammotome biopsy in the left breast. There is chronic distortion right upper outer quadrant middle position. ASSESSMENT: Benign, BI-RAD 2 RECOMMENDATION: Routine screening mammogram of both breasts in 1 year.
== END | disposition home or self-care (01) ==
LOC: RADMAMWWP 16:38
PROVIDERS: ATTEND Family Medicine
DX: Z12.31 Encounter for screening mammogram for malignant neoplasm of breast (principal)
CPT/HCPCS: 77063; 77067

== ENCOUNTER → 2018-11-01 | Outpatient (CLI) | payer MEDICAID | END | disposition home or self-care (01) | LOC: LABWHC1 15:57 | PROVIDERS: ATTEND Orthopaedic Surgery | DX: M79.671 Pain in right foot (principal); M84.374D Stress fracture, right foot, subsequent encounter for fracture with routine healing | CPT/HCPCS: 36415; 82306 ==

== ENCOUNTER → 2019-01-11 | Outpatient (CLI) | payer MEDICAID ==
[2019-01-11 11:30] LABS: Albumin 4.2 g/dL (3.80-4.90); Albumin/Globulin Ratio 2.21 (1.60-3.17); Anion Gap 9.6 mmol/L (4.00-12.00); Calcium 9.2 mg/dL (8.7-10.3); Carbon Dioxide 24.4 mmol/L (21.6-31.8); Globulin 1.9 g/dL (1.6-3.3); Potassium 4.2 mmol/L (3.5-5.5); Total Bilirubin 0.4 mg/dL (0.2-1.2); Total Protein 6.1 g/dL (6.2-8.2)
== END ==
LOC: LABWHC1 07:05
PROVIDERS: ATTEND Family Medicine
DX: I87.2 Venous insufficiency (chronic) (peripheral) (principal); R60.0 Localized edema
CPT/HCPCS: 36415; 80053; 83880

== ENCOUNTER → 2019-11-11 | Outpatient (CLI) | payer MEDICAID ==
[2019-11-11 11:38] LABS: Chol/HDL Ratio 3.14; LDL Cholesterol,Calculated 92.8 mg/dL (0.0-131.0); VLDL Calculation 16.2 mg/dL (5.00-40.00)
== END | disposition home or self-care (01) ==
LOC: LABWHC1 06:32
PROVIDERS: ATTEND Internal Medicine Interventional Cardiology
DX: E78.2 Mixed hyperlipidemia (principal)
CPT/HCPCS: 36415; 80061; 84450; 84460

== ENCOUNTER 2020-03-06 12:59 | Observation (INO) | payer MEDICAID ==
--- NOTE | 2020-03-06 13:14 | ED ---
General Adult HPI - General Chief complaint: Chest Pain Stated complaint: SOB Time Seen by Provider: 03/06/20 13:08 Source: patient, RN notes reviewed Mode of arrival: ambulatory Limitations: no limitations - History of Present Illness Initial comments: 65-year-old female with a past medical history of GERD, hyperlipidemia, hypertension, cholecystectomy, tubal ligation presents to the emergency department for a chief complaint of chest pain. Patient states she has had mild chest pain on and off for the past few days. Patient states it is a squeezing pain in the left anterior side of her chest. Patient states this is exacerbated by exertion. 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 Patient's chest pain is now improved. Patient had a heart catheterization done about 3.[address] Purvis that showed the left main has plaque by the ostium/proximal portion in the range of 20-30%. Patient was put on medical management at that time. Patient states she was taking cholesterol medications but has not been "completely faithful."Patient has no other complaints at this time including abdominal pain, nausea or vomiting, headache, or visual changes. - Related Data Home Medications Medication Instructions Recorded Confirmed Losartan [Cozaar] 50 mg PO DAILY 10/13/16 03/25/19 Pantoprazole Sodium 40 mg PO DAILY 10/13/16 03/25/19 Calcium Carbonate/Vitamin D3 1 tab PO BID 03/25/19 03/25/19 [Calcium 600-Vit D3 200 Tablet] Fluticasone Nasal [place] [Flonase 1 spr EA NOSTRIL DAILY PRN 03/25/19 03/25/19 Nasal [place]] Glucosamine Sulfate 500 mg PO DAILY 03/25/19 03/25/19 Ibuprofen [Motrin] 800 mg PO TID PRN 03/25/19 03/25/19 Lovastatin [Mevacor] 10 mg PO QAM 03/25/19 03/25/19 Previous Rx's Medication Instructions Recorded Amoxicillin/Potassium Clav 1 tab PO Q12HR #20 tab 03/25/19 [Augmentin 875-125 Tablet] Allergies Allergy/AdvReac Type Severity Reaction Status Date / Time levofloxacin [From Levaquin] Allergy Anaphylaxis Verified 03/06/20 13:04 codeine AdvReac Nausea & Verified 03/06/20 13:04 Vomiting erythromycin base AdvReac Nausea & Verified 03/06/20 13:04 Vomiting Review of Systems ROS Statement: Those systems with pertinent positive or pertinent negative responses have been documented in the HPI. ROS Other: All systems not noted in ROS Statement are negative. Past Medical History Past Medical History: GERD/Reflux, Hyperlipidemia, Hypertension History of Any Multi-Drug Resistant Organisms: None Reported Past Surgical History: Cholecystectomy, Orthopedic Surgery, Tubal Ligation Additional Past Surgical History / Comment(s): right breast lumpectomy (benign), R fibula fx with surgery-plate/screws. Past Anesthesia/Blood Transfusion Reactions: Postoperative Nausea & Vomiting (PONV) Past Psychological History: No Psychological Hx Reported Smoking Status: Never smoker Past Alcohol Use History: None Reported Past Drug Use History: None Reported - Past Family History Father Family Medical History: Diabetes Mellitus Additional Family Medical History / Comment(s): Father from fall at work which caused cervical fracture. Mother Family Medical History: Dementia, Hypertension Additional Family Medical History / Comment(s): Alzheimer's, macular degeneration-blindness. She at the age of 86yrs. General Exam Limitations: no limitations General appearance: alert, in no apparent distress Head exam: Present: atraumatic, normocephalic, normal inspection Eye exam: Present: normal appearance, PERRL, EOMI. Absent: scleral icterus, conjunctival injection, periorbital swelling ENT exam: Present: normal exam, mucous membranes moist Neck exam: Present: normal inspection, full ROM. Absent: tenderness, meningismus, lymphadenopathy Respiratory exam: Present: normal lung sounds bilaterally. Absent: respiratory distress, wheezes, rales, rhonchi, stridor Cardiovascular Exam: Present: regular rate, normal rhythm, normal heart sounds. Absent: systolic murmur, diastolic murmur, rubs, gallop, clicks GI/Abdominal exam: Present: soft, normal bowel sounds. Absent: distended, tenderness, guarding, rebound, rigid Neurological exam: Present: alert Course Vital Signs 03/06/20 03/06/20 13:01 13:40 Temperature 98.1 F Pulse Rate 85 86 Respiratory 18 18 Rate Blood Pressure 170/100 133/74 O2 Sat by Pulse 98 96 Oximetry EKG Findings - EKG Comments: EKG Findings:: Normal sinus rhythm, ventricular rate 79, AZ interval 180, QTC 444 Medical Decision Making - Medical Decision Making Vitals are stable. CBC CMP unremarkable. Troponin negative.EKG shows a normal sinus rhythm, no evidence of ST elevation or depression. She was given an aspirin upon presentation. Laboratory evaluation was performed which was unremarkable. Troponin is negative. Chest x-ray shows no acute process. Patient had a heart catheterization performed 3.5 years ago that showed mild 20- 30% coronary artery disease involving the left main coronary artery with preserv ed left ventricular systolic function. Given typical features of exertional squeezing chest pain accompanied with shortness of breath and diaphoresis patient was heparinized and will be admitted for cardiology consultation and trending troponin. - Lab Data Result diagrams: 03/06/20 13:25 03/06/20 13:25 Lab Results 03/06/20 03/06/20 03/06/20 Range/Units 13:25 13:25 13:25 WBC 9.1 (3.8-10.6) k/uL RBC 4.35 (3.80-5.40) m/uL Hgb 13.5 (11.4-16.0) gm/dL Hct 42.2 (34.0-46.0) % MCV 97.0 (80.0-100.0) fL MCH 31.0 (25.0-35.0) pg MCHC 32.0 (31.0-37.0) g/dL RDW 13.6 (11.5-15.5) % Plt Count 264 (150-450) k/uL Neutrophils % 68 % Lymphocytes % 22 % Monocytes % 4 % Eosinophils % 4 % Basophils % 1 % Neutrophils # 6.2 (1.3-7.7) k/uL Lymphocytes # 2.0 (1.0-4.8) k/uL Monocytes # 0.3 (0-1.0) k/uL Eosinophils # 0.3 (0-0.7) k/uL Basophils # 0.1 (0-0.2) k/uL PT 9.9 (9.0-12.0) sec INR 0.9 (<1.2) APTT 21.2 L (22.0-30.0) sec Sodium 140 (137-145) mmol/L Potassium 4.4 (3.5-5.1) mmol/L Chloride 107 (98-107) mmol/L Carbon Dioxide 25 (22-30) mmol/L Anion Gap 8 mmol/L BUN 15 (7-17) mg/dL Creatinine 0.60 (0.52-1.04) mg/dL Est GFR (CKD-EPI)AfAm >90 (>60 ml/min/1.73 sqM) Est GFR (CKD-EPI)NonAf >90 (>60 ml/min/1.73 sqM) Glucose 84 (74-99) mg/dL Calcium 9.1 (8.4-10.2) mg/dL Magnesium 2.1 (1.6-2.3) mg/dL Total Bilirubin 0.5 (0.2-1.3) mg/dL AST 31 (14-36) U/L ALT 32 (4-34) U/L Alkaline Phosphatase 78 (38-126) U/L Troponin I (0.000-0.034) ng/mL Total Protein 7.1 (6.3-8.2) g/dL Albumin 4.2 (3.5-5.0) g/dL Amylase <30 L (30-110) U/L Lipase 116 (23-300) U/L 03/06/20 Range/Units 13:25 WBC (3.8-10.6) k/uL RBC (3.80-5.40) m/uL Hgb (11.4-16.0) gm/dL Hct (34.0-46.0) % MCV (80.0-100.0) fL MCH (25.0-35.0) pg MCHC (31.0-37.0) g/dL RDW (11.5-15.5) % Plt Count (150-450) k/uL Neutrophils % % Lymphocytes % % Monocytes % % Eosinophils % % Basophils % % Neutrophils # (1.3-7.7) k/uL Lymphocytes # (1.0-4.8) k/uL Monocytes # (0-1.0) k/uL Eosinophils # (0-0.7) k/uL Basophils # (0-0.2) k/uL PT (9.0-12.0) sec INR (<1.2) APTT (22.0-30.0) sec Sodium (137-145) mmol/L Potassium (3.5-5.1) mmol/L Chloride (98-107) mmol/L Carbon Dioxide (22-30) mmol/L Anion Gap mmol/L BUN (7-17) mg/dL Creatinine (0.52-1.04) mg/dL Est GFR (CKD-EPI)AfAm (>60 ml/min/1.73 sqM) Est GFR (CKD-EPI)NonAf (>60 ml/min/1.73 sqM) Glucose (74-99) mg/dL Calcium (8.4-10.2) mg/dL Magnesium (1.6-2.3) mg/dL Total Bilirubin (0.2-1.3) mg/dL AST (14-36) U/L ALT (4-34) U/L Alkaline Phosphatase (38-126) U/L Troponin I <0.012 (0.000-0.034) ng/mL Total Protein (6.3-8.2) g/dL Albumin (3.5-5.0) g/dL Amylase (30-110) U/L Lipase (23-300) U/L Disposition Clinical Impression: Chest pain Disposition: ADMITTED IP TO THIS HOSP Condition: Fair Is patient prescribed a controlled substance at d/c from ED?: No Referrals: Jonh Cummings MD [Primary Care Provider] - 1-2 days Time of Disposition: 14:30
[2020-03-06] MEDS ORDERED: MORPHINE SULFATE 2 MG/ML SYRINGE IVP STA (13:25)
[2020-03-06] MEDS ORDERED: ASPIRIN 81 MG PO STA (13:25)
[2020-03-06 13:42] LABS: Basophils # (A) 0.1 k/uL (0-0.2); Basophils % (A) 1 %; Eosinophils # (A) 0.3 k/uL (0-0.7); Eosinophils % (A) 4 %; HCT 42.2 % (34.0-46.0); HGB 13.5 gm/dL (11.4-16.0); Lymphocytes % (A) 22 %; Mean Platelet Volume 8.9; Monocytes # (A) 0.3 k/uL (0-1.0); Monocytes % (A) 4 %; Neutrophils # (A) 6.2 k/uL (1.3-7.7); Neutrophils % (A) 68 %; Platelet Count 264 k/uL (150-450); RBC 4.35 m/uL (3.80-5.40); RDW 13.6 % (11.5-15.5); WBC 9.1 k/uL (3.8-10.6)
--- NOTE | 2020-03-06 13:43 | XR ---
EXAMINATION TYPE: XR chest 2V DATE OF EXAM: 03/06/2020 COMPARISON: 03/25/2019 TECHNIQUE: PA and lateral views submitted. HISTORY: Chest pain FINDINGS: The lungs are clear and there is no pneumothorax, pleural effusion, or focal pneumonia. Mild promin ence the central interstitium is stable from prior exam. Hypertrophic and degenerative change the spi ne. Mild arthropathy of the shoulders. Degenerative change of the spine. Mild hyperinflation. Atheros clerotic change aorta. IMPRESSION: 1. No acute process. There appears to be mild prominence of the central interstitium which could repr esent a reduced inspiration rather than bronchitis, chronic interstitial lung disease or congestion c orrelate clinically.
[2020-03-06 13:57] LABS: INR 0.9 (<1.2); Prothrombin Time 9.9 sec (9.0-12.0)
[2020-03-06 13:58] LABS: ALT 32 U/L (4-34); AST 31 U/L (14-36); African American GFR (CKD) >90 (>60 ml/min/1.73 sqM); Albumin 4.2 g/dL (3.5-5.0); Alkaline Phosphatase 78 U/L (38-126); Amylase <30 U/L (30-110); Anion Gap 8 mmol/L; Blood Urea Nitrogen 15 mg/dL (7-17); Calcium 9.1 mg/dL (8.4-10.2); Carbon Dioxide 25 mmol/L (22-30); Chloride 107 mmol/L (98-107); Glucose 84 mg/dL (74-99); Magnesium 2.1 mg/dL (1.6-2.3); Non-African American GFR(CKD) >90 (>60 ml/min/1.73 sqM); Partial Thromboplastin Time 21.2 sec (22.0-30.0); Sodium 140 mmol/L (137-145); Total Bilirubin 0.5 mg/dL (0.2-1.3); Total Protein 7.1 g/dL (6.3-8.2)
[2020-03-06 13:59] LABS: Potassium 4.4 mmol/L (3.5-5.1)
[2020-03-06] MEDS ORDERED: MORPHINE SULFATE 4 MG/ML SYRINGE IVP PRN (14:33)
[2020-03-06] MEDS ORDERED: HEPARIN SODIUM,PORCINE 5,000 UNIT/ML 1 ML VIAL IV ONE (14:33)
[2020-03-06] MEDS ORDERED: HEPARIN SODIUM,PORCINE 5,000 UNIT/ML 1 ML VIAL IV PRN (14:33)
[2020-03-06] MEDS ORDERED: HEPARIN SOD,PORK IN 0.45% NACL 25,000 UNIT in 0.45% NACL 1 250ML.BAG IV SCH (14:45)
[2020-03-07] MEDS ORDERED: ALPRAZolam 0.25 MG TAB PO PRN (00:17)
[2020-03-07] MEDS ORDERED: ACETAMINOPHEN TAB 500 MG TAB PO PRN (00:17)
[2020-03-07 05:30] VITALS: TEMP 97.7
[2020-03-07] MEDS ORDERED: PANTOPRAZOLE 40 MG TABLET PO SCH (07:30)
[2020-03-07 08:12] LABS: D-Dimer 0.19 mg/L FEU (<0.60); Partial Thromboplastin Time 30.5 sec (22.0-30.0)
--- NOTE | 2020-03-07 08:14 | HP ---
HISTORY AND PHYSICAL DATE OF SERVICE: 03/06/2020 I am covering for Dr. Cummings. CHIEF COMPLAINT: Chest pain. HISTORY OF PRESENT ILLNESS: This 65-year-old woman with a past medical history of multiple medical problems including history of GERD, hypertension, hyperlipidemia, history of DJD, history of cholecystectomy, being followed by Dr. Cummings in the outpatient setting, was complaining of chest pain which is felt in the anterior part of chest which was radiating to the right jaw. The pain was increasing in character which was rather persisting and which happened during work and the patient came to [facility] and admitted for evaluation and treatment. The patient had a cardiac catheterization by Dr. Lainez a few years ago and apparently had 30% coronary disease. After admission, the initial troponins are negative. Amylase is negative and the EKG also showed no acute abnormality. There is no history of fever, rigors. No headache, loss of consciousness, seizures. PAST MEDICAL HISTORY: History of GERD, hyperlipidemia, history of previous cardiac cath, history of cholecystectomy. MEDICATIONS: 1. Mevacor 20 mg at supper. 2. Protonix 40 mg daily. 3. Cozaar 50 mg p.o. daily. 4. Motrin 800 mg t.i.d. p.r.n. 5. Aspirin 81 mg daily. ALLERGIES: LEVAQUIN, CODEINE, ERYTHROMYCIN BASE. FAMILY HISTORY: History of diabetes in the family. SOCIAL HISTORY: No history of smoking, no history of alcohol intake. REVIEW OF SYSTEMS: ENT No history of diminished hearing or vision. CARDIOVASCULAR As mentioned earlier. RESPIRATORY As mentioned earlier. GI No nausea, vomiting, or diarrhea. No dysuria or hematuria. NERVOUS No numbness or weakness. ALLERGY/IMMUNOLOGY No asthma or hayfever. MUSCULOSKELETAL History of arthritis.. HEMATOLOGY/ONCOLOGY Negative. ENDOCRINE No history of diabetes or hypothyroidism. CONSTITUTIONAL As mentioned earlier. DERMATOLOGY Negative. RHEUMATOLOGY Negative, PSYCHIATRY As mentioned earlier. PHYSICAL EXAMINATION: Alert and oriented x3. Pulse is 78, blood pressure 125/70, respiration 20, temperature 98.2, pulse ox 92% on room air. HEENT: Conjunctivae normal. Oral mucosa moist. NECK: No jugular venous distention. No lymph node enlargement. CARDIOVASCULAR: S1, S2. RESPIRATORY: Diminished breath sounds at the bases. No rhonchi, no crackles. ABDOMEN: Soft, nontender. No mass palpable. LEGS: No edema, no swelling. NERVOUS SYSTEM: Higher functions mentioned earlier. Moves all four limbs. No focal deficits. LYMPHATICS: No lymph node in neck or axilla. SKIN: No rash. JOINTS: No active deforming arthropathy. LABS: CBC within normal. ( ) 21.2. Other labs noted. ASSESSMENT: 1. Chest pain, possible unstable angina. 2. History of previous cardiac catheterization and 30% coronary stenosis. 3. Gastroesophageal reflux disease. 4. Hypertension. 5. Hyperlipidemia. 6. History of degenerative joint disease. 7. History of cholecystectomy. 8. History of right breast lumpectomy. RECOMMENDATIONS AND DISCUSSION: In this 65-year-old woman who presented with multiple medical issues, at this time I recommend to continue current management, symptomatic treatment. Rule out myocardial infarction. Unstable angina protocol. Cardiology consultation. Possible stress test. Guarded prognosis because of multiple complex medical issues. I would also recommend D- dimer and if it is positive, a CT angio of the chest. Further recommendations to follow. MMODL / IJN: [id number] /
[2020-03-07 08:25] VITALS: BP 135/78; PULSE 69; RESP 19
--- NOTE | 2020-03-07 08:51 | P.CRDCN ---
History of Present Illness History of present illness: This is Dr. Floyd dictating a consult on this patient The patient was interviewed and examined IMPRESSION / ASSESSMENT: chest discomfort with normal cardiac enzymes normal ECG Known coronary artery disease Chest wall tenderness Patient was cleaning the ICU when she complained of nausea and sweatiness and of chest discomfort and shortness of breath She was nauseous and sweaty often in the mornings. She takes a losartan in the morning This is also associated with dizziness and shortness of breath While the symptoms may sound anginal I really think this represents vasovagal phenomena PLAN: I would recommend switching losartan to the evening Adequate hydration Normal salt intake While her LDL is 69 mg/dL she does have 2030% left main stenosis and perhaps reducing the LDL below 50 mg/dL may be of value in the long run I would recommend doubling the statin dose and I emphasized the need to be compliant with the medication She should see Dr. Lainez within the next week as She will go home today She has not had an acute myocardial infarction The follow-up ECG is very similar to the previous ECG and shows a subtle early repolarization the inferior leads no acute or new changes HPI Patient presented with chest discomfort squeezing discomfort in the left side Exacerbated by exertion Associates shortness of breath Past history of left main disease 20-30% month and a half years back She is prescribed statins but she has not been compliant with this History of hypertension on losartan ROS: No fever chills or rigors, no cough, phlegm or expectoration, no nausea, vomiting or diarrhea, no hematuria, dysuria, no musculoskeletal complaints, no strokes or seizures, no skin lesions. EXAMINATION: On examination her blood pressure is 170 100 mmHg and 133% 400 and his mercury afebrile pulse rate in the 80s Normal heart sounds Increased BMI No lower symmetry edema Chest wall tenderness Breath sounds are clear REVIEW OF LABS, ECG & MEDICAL DATA Sinus rhythm normal IN narrow QRS normal ST segments chest x-ray no acute process White count 9.1, hemoglobin 13.5 D-dimer is normal at 0.19 Sodium 140, potassium 4.4 BUN 15 creatinine 0.6 Troponin normal 3 Past Medical History Past Medical History: GERD/Reflux, Hyperlipidemia, Hypertension, Musculoskeletal Disorder Additional Past Medical History / Comment(s): pain injections to spine (steroid) History of Any Multi-Drug Resistant Organisms: None Reported Past Surgical History: Cholecystectomy, Heart Catheterization, Orthopedic Surgery, Tubal Ligation Additional Past Surgical History / Comment(s): right breast lumpectomy (benign), R fibula fx with surgery-plate/screws. Past Anesthesia/Blood Transfusion Reactions: Postoperative Nausea & Vomiting (PONV) Past Psychological History: No Psychological Hx Reported Additional Psychological History / Comment(s): Pt resides with her spouse and adult daughter. She is independent. Smoking Status: Never smoker Past Alcohol Use History: None Reported Past Drug Use History: None Reported - Past Family History Father Family Medical History: Diabetes Mellitus Additional Family Medical History / Comment(s): Father from fall at work which caused cervical fracture. Mother Family Medical History: Dementia, Hypertension Additional Family Medical History / Comment(s): Alzheimer's, macular degeneration-blindness. She at the age of 86yrs. Medications and Allergies Home Medications Medication Instructions Recorded Confirmed Type Losartan [Cozaar] 50 mg PO DAILY 10/13/16 03/06/20 History RX: Pantoprazole Sodium 40 mg PO DAILY 10/13/16 03/06/20 History Ibuprofen [Motrin] 800 mg PO TID PRN 03/25/19 03/06/20 History Aspirin EC [Ecotrin Low Dose] 81 mg PO DAILY 03/06/20 03/06/20 History Lovastatin [Mevacor] 20 mg PO W/SUPPER 03/06/20 03/06/20 History Allergies Allergy/AdvReac Type Severity Reaction Status Date / Time levofloxacin [From Levaquin] Allergy Anaphylaxis Verified 03/06/20 14:33 codeine AdvReac Nausea & Verified 03/06/20 14:33 Vomiting erythromycin base AdvReac Nausea & Verified 03/06/20 14:33 Vomiting Physical Exam Vitals: Vital Signs Temp Pulse Pulse Resp BP BP Pulse Ox 03/07/20 08:00 97.7 F 69 19 135/78 94 L 03/07/20 04:20 97.7 F 74 16 147/83 95 03/07/20 03:39 20 03/07/20 00:33 83 20 03/06/20 19:56 98.3 F 78 20 125/79 93 L 03/06/20 16:00 96 03/06/20 15:56 98.5 F 81 20 138/54 97 03/06/20 14:47 74 18 128/75 98 03/06/20 13:40 86 18 133/74 96 03/06/20 13:01 98.1 F 85 18 170/100 98 Intake and Output 03/06/20 03/07/20 03/07/20 22:59 06:59 14:59 Intake Total 300 Balance 300 Intake: Blood Product 300 Other: Voiding Method Toilet Toilet Weight 106.849 kg Results 03/06/20 13:25 03/06/20 13:25 Cardiac Enzymes 03/06/20 03/06/20 03/06/20 Range/Units 13:25 13:25 19:11 AST 31 (14-36) U/L Troponin I <0.012 <0.012 (0.000-0.034) ng/mL 03/07/20 Range/Units 01:02 AST (14-36) U/L Troponin I <0.012 (0.000-0.034) ng/mL Coagulation 03/06/20 03/06/20 03/07/20 Range/Units 13:25 19:11 07:16 PT 9.9 (9.0-12.0) sec APTT 21.2 L 35.6 H 30.5 H (22.0-30.0) sec CBC 03/06/20 Range/Units 13:25 WBC 9.1 (3.8-10.6) k/uL RBC 4.35 (3.80-5.40) m/uL Hgb 13.5 (11.4-16.0) gm/dL Hct 42.2 (34.0-46.0) % Plt Count 264 (150-450) k/uL Comprehensive Metabolic Panel 03/06/20 Range/Units 13:25 Sodium 140 (137-145) mmol/L Potassium 4.4 (3.5-5.1) mmol/L Chloride 107 (98-107) mmol/L Carbon Dioxide 25 (22-30) mmol/L BUN 15 (7-17) mg/dL Creatinine 0.60 (0.52-1.04) mg/dL Glucose 84 (74-99) mg/dL Calcium 9.1 (8.4-10.2) mg/dL AST 31 (14-36) U/L ALT 32 (4-34) U/L Alkaline Phosphatase 78 (38-126) U/L Total Protein 7.1 (6.3-8.2) g/dL Albumin 4.2 (3.5-5.0) g/dL Current Medications Generic Name Dose Route Start Last Admin Trade Name Freq PRN Reason Stop Dose Admin Acetaminophen 500 mg 03/07/20 00:17 Tylenol Tab PO Q6HR PRN Fever and/ or Pain Alprazolam 0.25 mg 03/07/20 00:17 Xanax PO TID PRN Anxiety Aspirin 325 mg 03/07/20 09:00 Aspirin PO DAILY [facility] Atorvastatin Calcium 10 mg 03/07/20 17:30 Lipitor PO W/SUPPER [facility] Heparin Sodium (Porcine) 0 unit 03/06/20 14:33 Heparin IV PER PROTOCOL PRN Low PTT Protocol Heparin Sodium/Sodium Chloride 250 mls @ 9.22 mls/hr 03/06/20 14:45 03/06/20 15:03 25,000 unit/ Sodium Chloride IV 8.5 unit/kg/hr .Q24H TIERA 9.22 mls/hr Administration Protocol Losartan Potassium 50 mg 03/07/20 09:00 Cozaar PO DAILY [facility] Morphine Sulfate 2 mg 03/06/20 14:33 Morphine Sulfate (Inj) IVP Q6H PRN Pain Pantoprazole Sodium 40 mg 03/07/20 07:30 Protonix PO AC-BRKFST TIERA Intake and Output 03/06/20 03/07/20 03/07/20 22:59 06:59 14:59 Intake Total 300 Balance 300 Intake: Blood Product 300 Other: Voiding Method Toilet Toilet Weight 106.849 kg 03/06/20 13:25 03/06/20 13:25
[2020-03-07 08:55] LABS: Cholesterol 147 mg/dL (<200); HDL Cholesterol 50 mg/dL (40-60); LDL Cholesterol,Calculated 69 mg/dL (0-99); Triglycerides 139 mg/dL (<150)
[2020-03-07] MEDS ORDERED: LOSARTAN 50 MG TAB PO SCH ×2 (09:00→21:00)
[2020-03-07] MEDS ORDERED: ASPIRIN 325 MG TAB PO SCH (09:00)
[2020-03-07] MEDS ORDERED: ATORVASTATIN 10 MG TAB PO SCH (17:30)
--- NOTE | 2020-03-08 00:42 | DS ---
DISCHARGE SUMMARY DATE OF SERVICE: 03/07/2020. FINAL DIAGNOSES: 1. Chest pain myocardial infarction ruled out. Rule out coronary artery disease. 2. Possible musculoskeletal pain. 3. History of previous cardiac catheterization 30% coronary artery stenosis. 4. Gastroesophageal reflux disease. 5. Hypertension. 6. Hyperlipidemia. 7. History of degenerative joint disease. 8. History of cholecystectomy. 9. History of right breast lumpectomy. DISCHARGE DISPOSITION: The patient discharged in stable condition with guarded prognosis. HISTORY OF PRESENT ILLNESS: This 65-year-old woman with a past medical history of multiple problems being followed by Dr. Cummings in the outpatient setting. No chest pain. Myocardial infarction ruled out. Cardiology saw the patient recommend outpatient followup and possible stress test. Otherwise basic labs including D-dimer, the sedimentation rate and CRP was within normal limits. Lipid panel is also normal. COVID-19 was negative. On exam, vitals are stable. Cardiovascular: S1, S2. Abdomen soft. Nervous system: No focal deficits. DISCHARGE ADVICE AND MEDICATIONS: 1. Diet is cardiac diet. 2. Follow up with Dr. Cummings 2-3 days. .. 3. Follow up with Dr. Lainez as recommended. 4. Ecotrin 81 mg daily. 5. Protonix 40 mg daily. 6. Cozaar 50 mg q.h.s. 7. Mevacor 40 mg daily. 8. Motrin p.r.n. Once again the patient discharged in stable condition with guarded prognosis. MMODL / IJN: [id number] /
== END 2020-03-07 13:23 | disposition home or self-care (01) ==
LOC: EC 12:59 → 1SOBS 14:27
PROVIDERS: ADMIT Family Medicine; ATTEND Family Medicine
DX: R07.89 Other chest pain (principal); R61 Generalized hyperhidrosis; R06.02 Shortness of breath; R11.0 Nausea; R42 Dizziness and giddiness; K21.9 Gastro-esophageal reflux disease without esophagitis; I10 Essential (primary) hypertension; E78.5 Hyperlipidemia, unspecified; I25.10 Atherosclerotic heart disease of native coronary artery without angina pectoris; M19.90 Unspecified osteoarthritis, unspecified site; Z03.818 Encounter for observation for suspected exposure to other biological agents ruled out; Z91.14 Patient's other noncompliance with medication regimen; Z79.899 Other long term (current) drug therapy; Z79.82 Long term (current) use of aspirin; Z88.1 Allergy status to other antibiotic agents; Z88.5 Allergy status to narcotic agent; Z98.51 Tubal ligation status; Z90.49 Acquired absence of other specified parts of digestive tract; Z87.81 Personal history of (healed) traumatic fracture; Z83.3 Family history of diabetes mellitus; Z82.49 Family history of ischemic heart disease and other diseases of the circulatory system; Z82.1 Family history of blindness and visual loss; Z82.0 Family history of epilepsy and other diseases of the nervous system
CPT/HCPCS: 93005 ×2; 96365; 96366 ×2; 96376; 96375; 99285; 36415; 85379; 80061; 80053; 85652; 82150; 83690; 83735; 84484 ×2; 85025; 85610; 85730 ×2; 86140; 71046; G0378 ×2; U0003; J1644 ×2; J2270

== ENCOUNTER → 2020-03-13 | Outpatient (CLI) | payer MEDICAID ==
--- NOTE | 2020-03-13 11:17 | EST ---
EXERCISE STRESS AGE: 65 SEX: F HT: 60: WT: 221 PROTOCOL: Ben Stress Test STAGE: 2 DURATION OF EXERCISE: 3:36 HEART RATE REST: 80 BLOOD PRESSURE REST: 129/80 MAXIMUM HEART RATE ACHIEVED: 137 MAXIMUM BLOOD PRESSURE: 195/98 85% MPHR: 133 100% MPHR: 157 METS: 5.2 INDICATIONS: Chest pain. CLINICAL INFORMATION: Baseline EKG shows sinus rhythm with poor R-wave progression. Patient exercised on Ben protocol for a total of 3.5 minutes achieving 5 METS, 87% of predicted maximal heart rate without chest pain or diagnostic ST-segment depression. CONCLUSION: 1. Poor exercise tolerance. 2. Negative stress test by EKG criteria. MMODL / IJN: [id number] /
== END | disposition home or self-care (01) ==
LOC: RADNMMAIN 08:30
PROVIDERS: ATTEND Family Medicine
DX: R07.9 Chest pain, unspecified (principal)
CPT/HCPCS: 93017

== ENCOUNTER → 2020-03-19 | Outpatient (CLI) | payer MEDICAID ==
--- NOTE | 2020-03-20 10:35 | ECHOF ---
Referral Reason:I25.10 Cardiovascular disease unspecified MEASUREMENTS -------- HEIGHT: 152.4 cm WEIGHT: 104.3 kg BP: IVSd: 1.4 cm (0.6 - 1.1) LVIDd: 3.6 cm (3.9 - 5.3) LVPWd: 1.7 cm (0.6 - 1.1) IVSs: 2.0 cm LVIDs: 2.3 cm LVPWs: 2.1 cm LAESV Index (A-L): 19.12 ml/m Ao Diam: 2.7 cm (2.0 - 3.7) AV Cusp: 1.8 cm (1.5 - 2.6) LA Diam: 2.7 cm (2.7 - 3.8) MV EXCURSION: 12.108 mm (> 18.000) MV EF SLOPE: 66 mm/s (70 - 150) EPSS: 1.1 cm MV E Jesus: 0.87 m/s MV DecT: 208 ms MV A Jesus: 1.12 m/s MV E/A Ratio: 0.78 RAP: 5.00 mmHg RVSP: 25.63 mmHg FINDINGS -------- Sinus rhythm. This was a technically good study. The left ventricular size is normal. There is moderate concentric left ventricular hypertrophy. O verall left ventricular systolic function is normal with, an EF between 55 - 60 %. The diastolic fi lling pattern is normal for the age of the patient 14.58. The right ventricle is normal in size. The left atrial size is normal. Normal LA size by volume 22+/-6 ml/m2. The right atrial size is normal. The aortic valve is trileaflet and appears structurally normal. The mitral valve is normal. Mild mitral regurgitation is present. The tricuspid valve appears structurally normal. Mild tricuspid regurgitation present. Right vent ricular systolic pressure is normal at < 35 mmHg. There is no pulmonic regurgitation present. The aortic root size is normal. IVC Not well visulized. There is no pericardial effusion. CONCLUSIONS -------- 1. Sinus rhythm. 2. This was a technically good study. 3. The left ventricular size is normal. 4. There is moderate concentric left ventricular hypertrophy. 5. Overall left ventricular systolic function is normal with, an EF between 55 - 60 %. 6. The diastolic filling pattern is normal for the age of the patient 14.58 7. The right ventricle is normal in size. 8. The left atrial size is normal. 9. Normal LA size by volume 22+/-6 ml/m2. 10. The right atrial size is normal. 11. The aortic valve is trileaflet and appears structurally normal. 12. The mitral valve is normal. 13. Mild mitral regurgitation is present. 14. The tricuspid valve appears structurally normal. 15. Mild tricuspid regurgitation present. 16. Right ventricular systolic pressure is normal at < 35 mmHg. 17. There is no pulmonic regurgitation present. 18. The aortic root size is normal. 19. IVC Not well visulized. 20. There is no pericardial effusion. TEST CLERK: Gladys Castillo RDCS
== END | disposition home or self-care (01) ==
LOC: RADECHMAIN 12:38
PROVIDERS: ATTEND Internal Medicine Interventional Cardiology
DX: I08.1 Rheumatic disorders of both mitral and tricuspid valves (principal)
CPT/HCPCS: 93306

== ENCOUNTER → 2020-03-23 | Outpatient (CLI) | payer MEDICAID ==
--- NOTE | 2020-03-23 12:42 | CT ---
EXAMINATION TYPE: CT chest w con DATE OF EXAM: 03/23/2020 COMPARISON: Chest x-ray March 06 2020. HISTORY: Shortness of breath CT DLP: 568.3 mGycm. Automated Exposure Control for Dose Reduction was Utilized. TECHNIQUE: CT scan of the thorax is performed following with IV Contrast, patient injected with 100 mL of Isovue 300. FINDINGS: LUNGS: The lungs are grossly clear bilaterally. Few scattered small micronodules, for reference two n odules measuring between 3 to 4 mm in the right middle lobe axial images 33 and 34 respectively. Ther e is benign 4 x 2 mm intrapulmonary lymph node along the fissure left mid lung axial image 29-year-ol d No suspicious greater than 4 mm pulmonary nodules or masses. There is no pleural effusion or pneumo thorax seen bilaterally. The tracheobronchial tree is patent. MEDIASTINUM: There are no greater than 1 cm hilar or mediastinal lymph nodes. No cardiomegaly or pe ricardial effusion is seen. OTHER: Cholecystectomy clips are present. Visualized liver is heterogeneously hypodense relative to s pleen consistent with mild diffuse fatty infiltration. [id number] generalized fat replaced at rophy of the mid to distal body and tail of pancreas. Mild mild multilevel spurring in the mid to low er thoracic spine with slight S-shaped scoliotic curvature. IMPRESSION: No significant acute or chronic pulmonary process.
== END | disposition home or self-care (01) ==
LOC: RADCTMAIN 11:04
PROVIDERS: ATTEND Nurse Practitioner Adult Health
DX: R06.00 Dyspnea, unspecified (principal)
CPT/HCPCS: 71260; Q9967

== ENCOUNTER 2020-12-17 18:33 | Emergency (ER) | payer OTHER, MEDICAID ==
[2020-12-17 18:53] VITALS: RESP 18
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
[2020-12-17 21:17] VITALS: BP 157/73; PULSE 83; TEMP 98.3
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
== END 2020-12-17 21:35 | disposition home or self-care (01) ==
LOC: EC 18:33
DX: S69.92XA Unspecified injury of left wrist, hand and finger(s), initial encounter (principal); K21.9 Gastro-esophageal reflux disease without esophagitis; E78.5 Hyperlipidemia, unspecified; I10 Essential (primary) hypertension; M54.2 Cervicalgia; Z90.49 Acquired absence of other specified parts of digestive tract; Z95.5 Presence of coronary angioplasty implant and graft; Z98.51 Tubal ligation status; V89.2XXA Person injured in unspecified motor-vehicle accident, traffic, initial encounter; Y93.I9 Activity, other involving external motion; Z79.82 Long term (current) use of aspirin
CPT/HCPCS: 70450; 71046; 72125; 72128; 99284

== ENCOUNTER 2021-08-02 08:10 | Emergency (ER) | payer MEDICAID ==
[2021-08-02] MEDS ORDERED: ACETAMINOPHEN TAB 500 MG TAB PO STA (09:01)
--- NOTE | 2021-08-02 09:14 | ED ---
General Adult HPI - General Chief complaint: Upper Respiratory Infection Stated complaint: Covid+, cough, congestion Time Seen by Provider: 08/02/21 08:25 Source: patient, RN notes reviewed Mode of arrival: ambulatory Limitations: no limitations - History of Present Illness Initial comments: 66-year-old female with a past medical history of hyperlipidemia, hypertension, GERD, obesity presents to the emergency room for covid antibodies. Patient developed symptoms of cough and congestion 6 days ago. States that she tested positive for [place] virus 2 days ago. Patient was told by employee health nurse to come to the ER to get antibody infusion. Patient denies shortness of breath or chest pain.Patient has no other complaints at this time including shortness of breath, chest pain, abdominal pain, nausea or vomiting, headache, or visual changes. - Related Data Home Medications Medication Instructions Recorded Confirmed Pantoprazole Sodium 40 mg PO HS 10/13/16 12/17/20 Aspirin EC [Ecotrin Low Dose] 81 mg PO HS 03/06/20 12/17/20 Glucosam/Samm-Msm1/C/Masood/Bosw 2 tab PO HS 12/17/20 12/17/20 [Glucosamine-Chondroitin Tablet] Lovastatin [Mevacor] 40 mg PO HS 12/17/20 12/17/20 Ubidecarenone [Co Q-10] 100 mg PO HS 12/17/20 12/17/20 Previous Rx's Medication Instructions Recorded Losartan [Cozaar] 50 mg PO HS tab 03/07/20 Benzonatate [Tessalon Perles] 200 mg PO Q8H PRN #15 capsule 08/02/21 Allergies Allergy/AdvReac Type Severity Reaction Status Date / Time levofloxacin [From Levaquin] Allergy Anaphylaxis Verified 08/02/21 08:19 codeine AdvReac Nausea & Verified 08/02/21 08:19 Vomiting erythromycin base AdvReac Nausea & Verified 08/02/21 08:19 Vomiting Review of Systems ROS Statement: Those systems with pertinent positive or pertinent negative responses have been documented in the HPI. ROS Other: All systems not noted in ROS Statement are negative. Past Medical History Past Medical History: GERD/Reflux, Hyperlipidemia, Hypertension, Musculoskeletal Disorder Additional Past Medical History / Comment(s): pain injections to spine (steroid) History of Any Multi-Drug Resistant Organisms: None Reported Past Surgical History: Cholecystectomy, Heart Catheterization, Orthopedic Surgery, Tubal Ligation Additional Past Surgical History / Comment(s): right breast lumpectomy (benign), R fibula fx with surgery-plate/screws. Past Anesthesia/Blood Transfusion Reactions: Postoperative Nausea & Vomiting (PONV) Past Psychological History: No Psychological Hx Reported Smoking Status: Never smoker Past Alcohol Use History: None Reported Past Drug Use History: None Reported - Past Family History Father Family Medical History: Diabetes Mellitus Additional Family Medical History / Comment(s): Father from fall at work which caused cervical fracture. Mother Family Medical History: Dementia, Hypertension Additional Family Medical History / Comment(s): Alzheimer's, macular degeneration-blindness. She at the age of 86yrs. General Exam Limitations: no limitations General appearance: alert, in no apparent distress Head exam: Present: atraumatic Eye exam: Present: normal appearance, PERRL, EOMI. Absent: scleral icterus, conjunctival injection ENT exam: Present: normal exam, mucous membranes moist Neck exam: Present: normal inspection, full ROM Respiratory exam: Present: normal lung sounds bilaterally. Absent: respiratory distress, wheezes Cardiovascular Exam: Present: regular rate, normal rhythm, normal heart sounds Course Vital Signs 08/02/21 08:16 Temperature 100.1 F H Pulse Rate 82 Respiratory 18 Rate Blood Pressure 178/93 O2 Sat by Pulse 94 L Oximetry Medical Decision Making - Medical Decision Making Vitals are stable. Patient is well-appearing. She is 95-97% on room air while I am in the room. I did offer a chest x-ray however patient does not feel this is necessary at this time. States she is here for antibody infusion. This will be ordered for patient. She is taking Mucinex at home, I will prescribe Tessalon Perles. Start return parameters discussed including shortness of breath. She will otherwise follow-up with primary care. In fact she has an appointment this afternoon Disposition Clinical Impression: COVID Disposition: HOME SELF-CARE Condition: Good Instructions (If sedation given, give patient instructions): Coronavirus Disease 2019 (COVID-19) Additional Instructions: Please follow up with primary care in 1-2 days. Return to the emergency room for any worsening symptoms. Prescriptions: Benzonatate [Tessalon Perles] 200 mg PO Q8H PRN #15 capsule PRN Reason: Cough Is patient prescribed a controlled substance at d/c from ED?: No Referrals: Katiuska Dhillon DO [Primary Care Provider] - 1-2 days Time of Disposition: 09:13
[2021-08-02] MEDS ORDERED: SODIUM CHLORIDE 0.9% 50 ML IVPB ONE (09:30)
[2021-08-02] MEDS ORDERED: CASIRIVIMAB (REGN10933) (EUA) 600 MG, IMDEVIMAB (REGN10987) (EUA) 600 MG in SODIUM CHLO... IVPB ONE (09:40)
[2021-08-02 09:52] VITALS: RESP 16; TEMP 98.2
[2021-08-02] MEDS ORDERED: SODIUM CHLORIDE 0.9% 500 ML 500 ML in EMPTY BAG 1 BAG IV PRN (10:26)
[2021-08-02] MEDS ORDERED: diphenhydrAMINE 50 MG/ML 1 ML VIAL IVP ONE (10:26)
[2021-08-02] MEDS ORDERED: methylPREDNISolone SOD SUCCI 125 MG/2 ML VIAL IV STA (10:27)
[2021-08-02 11:35] VITALS: BP 142/73; PULSE 78
== END 2021-08-02 11:30 ==
LOC: EC 08:10 → PROCWHC3 08:10 → EDSTATUS 09:37 → PROCWHC3 11:30 → EDSTATUS 13:52
DX: U07.1 COVID-19 (principal); E78.5 Hyperlipidemia, unspecified; I10 Essential (primary) hypertension; K21.9 Gastro-esophageal reflux disease without esophagitis; Z79.82 Long term (current) use of aspirin; Z88.1 Allergy status to other antibiotic agents; Z88.5 Allergy status to narcotic agent; Z90.49 Acquired absence of other specified parts of digestive tract; Z98.51 Tubal ligation status
CPT/HCPCS: 96365; 96375 ×2; 99284; 87635; 96361; 99212; M0243 ×2; J1200; J2930; Q0243

== ENCOUNTER → 2022-01-27 | Outpatient (CLI) | payer MEDICAID ==
[2022-01-27 14:29] LABS: HCT 41.7 % (37.2-46.3); HGB 13.5 g/dL (12.0-15.0); MCH 31.7 pg (27.0-32.0); MCHC 32.4 g/dL (32.0-37.0); MCV 97.9 fL (80.0-97.0); Mean Platelet Volume 11.6 fL (9.5-12.2); NRBC Per 100 WBC 0 /100 WBCS (0.0-0.0); Platelet Count 315 X 10*3/uL (140-440); RBC 4.26 X 10*6/uL (4.10-5.20); RDW 13.3 % (11.5-14.5); WBC 10.59 X 10*3/uL (4.50-10.00)
[2022-01-27 15:25] LABS: ALT 28 U/L (8-44); AST 15 U/L (13-35); African American GFR (CKD) 111.6 (60.0-200.0); Albumin 4.6 g/dL (3.8-4.9); Albumin/Globulin Ratio 1.84 (1.60-3.17); Alkaline Phosphatase 65 U/L (41-126); BUN/Creat Ratio 32.67 Ratio (12.00-20.00); Blood Urea Nitrogen 19.6 mg/dL (9.0-27.0); Calcium 9.3 mg/dL (8.7-10.3); Carbon Dioxide 22.7 mmol/L (20.0-27.5); Chloride 105 mmol/L (96-109); Chol/HDL Ratio 2.73 Ratio; Globulin 2.5 g/dL (1.6-3.3); Glucose 108 mg/dL (70-110); LDL Cholesterol,Calculated 76.7 mg/dL (0.0-131.0); Non-African American GFR(CKD) 96.3 (60.0-200.0); Potassium 4.4 mmol/L (3.5-5.5); Sodium 140 mmol/L (135-145); Total Protein 7.1 g/dL (6.2-8.2); VLDL Calculation 14.48 mg/dL (5.00-40.00)
== END | disposition home or self-care (01) ==
LOC: LABWHC1 07:27
PROVIDERS: ATTEND Family Medicine
DX: I10 Essential (primary) hypertension (principal); R73.01 Impaired fasting glucose
CPT/HCPCS: 36415; 80053; 80061; 83036; 84443; 85027

== ENCOUNTER → 2023-10-26 | Outpatient (CLI) | payer MEDICARE ==
[2023-10-26 15:27] LABS: Basophils # (A) 0.07 X 10*3/uL (0.00-0.10); Basophils % (A) 0.6 %; Eosinophils # (A) 0.21 X 10*3/uL (0.04-0.35); Eosinophils % (A) 1.9 %; HCT 43.6 % (37.2-46.3); HGB 14.4 g/dL (12.0-15.0); Lymphocytes # (A) 3.45 X 10*3/uL (0.90-5.00); Lymphocytes % (A) 30.8 %; MCH 32.3 pg (27.0-32.0); MCV 97.8 FL (80.0-97.0); Mean Platelet Volume 11.3 FL (9.5-12.2); Monocytes # (A) 0.58 X 10*3/uL (0.20-1.00); Monocytes % (A) 5.2 %; NRBC Per 100 WBC 0 X 10*3/uL (0.00-0.01); Neutrophils # (A) 6.82 X 10*3/uL (1.80-7.70); Neutrophils % (A) 60.9 %; Platelet Count 369 X 10*3/uL (140-440); RBC 4.46 X 10*6/uL (4.10-5.20); RDW 13.2 % (11.5-14.5)
== END | disposition home or self-care (01) ==
LOC: LABPAT 10:29
PROVIDERS: ATTEND Obstetrics & Gynecology Obstetrics
DX: Z01.812 Encounter for preprocedural laboratory examination (principal); N95.0 Postmenopausal bleeding; I10 Essential (primary) hypertension; I45.4 Nonspecific intraventricular block; R94.31 Abnormal electrocardiogram [ECG] [EKG]
CPT/HCPCS: 85025; 93005

== ENCOUNTER 2023-10-30 11:06 | Day surgery (SDC) | payer MEDICAID, MEDICARE ==
[2023-10-25 09:55] VITALS: BMI 48.8
[~2023-10-30 11:06] MED LIST: DEXAMETHASONE SOD PHOSPHATE 4 MG/ML 1 ML VIAL IV ONE; LACTATED RINGERS 1,000 ML IV SCH; LIDOCAINE 1% (10MG/ML) FOR IV START INTRADERMA PRN; ONDANSETRON 4 MG/2 ML VIAL IVP ONE; droPERidol 5 MG/2 ML VIAL IVP ONE; fentaNYL (PF) 50 MCG/ML 2 ML AMP IV PRN
[2023-10-30] MEDS ORDERED: FAMOTIDINE 20 MG/2 ML VIAL IVP ONE (12:14)
[2023-10-30] MEDS ORDERED: PROPOFOL 10 MG/ML 20 ML VIAL IV ONE (12:40)
[2023-10-30] MEDS ORDERED: PHENYLEPHRINE-0.9% NACL SYG 1,000 MCG/10 ML SYRINGE ONE (12:40)
[2023-10-30] MEDS ORDERED: SUCCINYLCHOLINE CHLORIDE 200 MG/10 ML VIAL IV ONE (12:40)
[2023-10-30] MEDS ORDERED: MIDAZOLAM 2 MG/2 ML VIAL ONE (12:40)
[2023-10-30] MEDS ORDERED: fentaNYL (PF) 50 MCG/ML 2 ML AMP ONE (12:40)
[2023-10-30] MEDS ORDERED: KETOROLAC 15 MG/ML 1 ML VIAL ONE (12:40)
[2023-10-30] MEDS ORDERED: LIDOCAINE 1% INJ 10MG/ML (20 ML MDV) ONE (12:40)
--- NOTE | 2023-10-30 13:19 | P.OP ---
Date of Procedure: 10/30/23 Preoperative Diagnosis: Postmenopausal bleeding Postoperative Diagnosis: Same Procedure(s) Performed: Hysteroscopy, dilation and curettage Anesthesia: MY Surgeon: Katharina Coronado Estimated Blood Loss (ml): 5 Urine output (ml): 200 Pathology: other (Endometrial curettings) Condition: stable Disposition: PACU Indications for Procedure: Postmenopausal bleeding Operative Findings: Proliferative endometrium Description of Procedure: Patient was taken back to the operating suite where general anesthesia was obtained without difficulty by the anesthesia department. She was prepped and draped in the normal sterile fashion in the dorsolithotomy position. A red rubber catheter was used to drain the bladder of clear yellow urine. A weighted speculum was placed in the posterior vaginal vault the antilipid the cervix was visualized and grasped with a single-tooth tenaculum. The cervical canal was noted to be stenotic therefore a hemostat was used to gently open the external opening of the cervix upon opening of the cervix a large amount of maroon- colored mucus like blood was expelled the cervix was serially dilated and the hysteroscope was placed through the cervix and toward the endometrial cavity difficulty and visualization was noted secondary to the blood in the endometrial cavity. A sound was then used to measure the uterus of 9 to 10 cm. At this time a sharp curettage was performed. A good amount of tissue was evacuated from the uterus. The specimen was then sent to pathology for analysis. The single-tooth tenaculum was taken off of the anterior lip of the cervix. All instruments were removed from the patient's vaginal vault. Patient tolerated procedure well and was taken the recovery room awake in stable condition.
[2023-10-30 13:24] VITALS: TEMP 97.8
[2023-10-30 14:48] VITALS: RESP 20
[2023-10-30 15:17] VITALS: BP 123/70; PULSE 90
== END 2023-10-30 15:04 | disposition home or self-care (01) ==
LOC: OR 11:06
PROVIDERS: ATTEND Obstetrics & Gynecology Obstetrics
DX: C54.1 Malignant neoplasm of endometrium (principal); I10 Essential (primary) hypertension; K21.9 Gastro-esophageal reflux disease without esophagitis; E78.5 Hyperlipidemia, unspecified; Z88.1 Allergy status to other antibiotic agents; Z88.8 Allergy status to other drugs, medicaments and biological substances; Z88.5 Allergy status to narcotic agent; Z79.899 Other long term (current) drug therapy
CPT/HCPCS: 58558; 88305; 88342; 88341; J2250; J0330; J1100; J2405; J2001; J3010; J3490; J1885; J2704; J2371

== ENCOUNTER → 2023-12-08 | Outpatient (CLI) | payer MEDICARE ==
--- NOTE | 2023-12-08 11:17 | XR ---
EXAMINATION TYPE: XR chest 2V DATE OF EXAM: 12/08/2023 COMPARISON: 12/17/2020. HISTORY: Endometrial cancer. TECHNIQUE: Frontal and lateral views of the chest are obtained. FINDINGS: There is no focal air space opacity, pleural effusion, or pneumothorax seen. The cardiac silhouette size is within normal limits. The osseous structures are intact. IMPRESSION: No acute cardiopulmonary process.
== END | disposition home or self-care (01) ==
LOC: RADXRMAIN 10:53
PROVIDERS: ATTEND Obstetrics & Gynecology
DX: C54.1 Malignant neoplasm of endometrium (principal)
CPT/HCPCS: 71046

== ENCOUNTER → 2023-12-13 | Outpatient (CLI) | payer MEDICARE ==
[2023-12-13 12:40] LABS: Glucose,Whole Blood 127 mg/dL (70-110)
--- NOTE | 2023-12-13 14:04 | CT ---
EXAMINATION: CT ABDOMEN AND PELVIS WITH IV CONTRAST DATE OF EXAMINATION: 12/13/2023. COMPARISON: None available. INDICATION: Malignant neoplasm of the endometrium. PROCEDURE: Axial CT of the abdomen and pelvis was performed with contrast and sagittal and coronal reformatted images were performed. CT dose lowering techniques were used, to include: automated expos ure control, adjustment for patient size, and/or use of iterative reconstruction. 100 mL of Isovue-37 0 was given intravenously. FINDINGS: LOWER CHEST : The visualized lung bases are clear. There are no pleural or pericardial effusions. ABDOMEN: Liver and Biliary system: There is diffuse decreased attenuation of liver disease compatible with fa tty liver infiltration. The liver is enlarged measuring 18.5 cm in craniocaudal dimension.. Adrenal glands: Normal. Kidneys and ureters: Normal. Spleen: Normal. Pancreas: There appears to be some fatty atrophic changes of the distal pancreas of indeterminate si gnificance. A definitive pancreatic head mass is seen, however the density of the pancreatic tissue i n the region of the head and neck appear present.. Gallbladder: Absent. Lymph nodes, Peritoneum and mesentery: There is no mesenteric or retroperitoneal lymphadenopathy. Gastrointestinal tract: There are no dilated loops of bowel or free intraperitoneal air. The appe ndix is normal. There is mild descending colonic and sigmoid colonic diverticulosis without evidence of diverticulitis. Aorta/IVC: No aortic aneurysm. IVC normal. Abdominal wall: Normal. PELVIS: Fluid: There is no free fluid in the pelvis. Lymph Nodes: There is no pelvic or inguinal lymphadenopathy.. Urinary bladder: Normal. BONES: There are no osseous destructive lesions.. ADDITIONAL SIGNIFICANT FINDINGS: There is a small anterior uterine fibroid. Uterus and endometrium is otherwise not well evaluated on this examination. IMPRESSION: 1. No definitive evidence of metastatic disease within the abdomen or pelvis. 2. Hepatomegaly with hepatic steatosis.
[2023-12-13 15:17] VITALS: BP 123/63; PULSE 88; RESP 18; TEMP 98.1
== END | disposition home or self-care (01) ==
LOC: RADCTMAIN 11:38
PROVIDERS: ATTEND Obstetrics & Gynecology
DX: C54.1 Malignant neoplasm of endometrium (principal); R16.0 Hepatomegaly, not elsewhere classified; K76.0 Fatty (change of) liver, not elsewhere classified
CPT/HCPCS: 74177; Q9967